=== PATIENT | male | born 1960 | race Two or more races ===

== ENCOUNTER 2022-07-30 23:51 | Inpatient (IN) | payer OTHER ==
[~2022-07-30] VITALS: Ht 172.7 cm; Wt 127.0 kg
--- NOTE | 2022-07-31 00:01 | NUR ---
TO ER BED 11. RADHA FROM [facility] B& FOR AMS. PT IS AAOX0, RR EVEN AND NON LABORED. CONNECTED TO POX AND HEART MONITOR. AWAITING MD COLINDRES
--- NOTE | 2022-07-31 00:13 | NUR ---
IV LINE ESTABLISHED, LAC20G
--- NOTE | 2022-07-31 00:16 | NUR ---
BLOOD AND CULTURES COLLECTED AND SENT TO LAB
--- NOTE | 2022-07-31 00:23 | NUR ---
COVID SWAB COLLECTED
[2022-07-31] MEDS ORDERED: IV NS 0.9% 1,000 ML BAG IV ONE ×2 (00:30→03:00)
--- NOTE | 2022-07-31 00:34 | NUR ---
SISTER, YUNG: [phone]
[2022-07-31 01:01] LABS: BASOPHILS % (AUTO) 0.5 % (0.0-2.0); EOSINOPHILS % (AUTO) 0.1 % (0.0-6.0); HEMATOCRIT 23 % (39-51); HEMOGLOBIN 7.7 g/dL (13.5-17.5); LYMPHOCYTES # (AUTO) 0.6 K/uL (0.8-4.8); LYMPHOCYTES % (AUTO) 6.6 % (20.0-44.0); MEAN CORPUSCULAR HGB CONC 34 g/dl (31.0-36.0); MEAN CORPUSCULAR VOLUME 82 fL (80-96); MONOCYTES # (AUTO) 0.6 K/uL (0.1-1.30); MONOCYTES % (AUTO) 6.3 % (2.0-12.0); NEUTROPHILS # (AUTO) 7.9 K/uL (1.8-8.9); NEUTROPHILS % (AUTO) 86.5 % (43.0-81.0); PLATELET COUNT (AUTO) 216 K/uL (150-450); RED BLOOD CELL COUNT(AUTO) 2.78 MIL/uL (4.5-6.0); WHITE BLOOD COUNT (AUTO) 9.1 K/uL (4.3-11.0)
[2022-07-31 01:18] LABS: BILIRUBIN,URINE NEGATIVE (NEGATIVE); COLOR,URINE YELLOW (YELLOW); LEUKOCYTE ESTERASE ,URINE NEGATIVE (NEGATIVE); NITRITE, URINE NEGATIVE (NEGATIVE); PH,URINE 5.5 (5.0-8.0); PROTEIN,URINE NEGATIVE (NEGATIVE); UGLUCOSE NEGATIVE (NEGATIVE); UROBILINOGEN,URINE 0.2 EU/dL (0.2)
[2022-07-31 01:27] LABS: SERUM AMMONIA 78 umol/L (11-32)
[2022-07-31 01:42] LABS: BACTERIA,URINE Few /HPF (None Seen); SQUAMOUS EPITHELIAL CELL,UR Moderate /HPF (None Seen)
[2022-07-31] MEDS ORDERED: LACTULOSE 10 G/15 ML UDC (PYXIS) ONE (01:42)
[2022-07-31 01:55] LABS: CALCIUM, SERUM 9.4 mg/dL (8.5-10.1); CARBON DIOXIDE 23 mmol/L (21-32); CHLORIDE 112 mmol/L (98-107); CREATININE 1.6 mg/dL (0.6-1.3); GLUCOSE 155 mg/dL (74-106); POTASSIUM 3.2 mmol/L (3.5-5.1); SODIUM SERUM 150 mmol/L (136-145)
[2022-07-31] MEDS ORDERED: LACTULOSE 10 G/15 ML UDC (PYXIS) PR ONE (02:00)
[2022-07-31 02:01] LABS: ACETAMINOPHEN 0 ug/ml (10-30); ALANINE AMINOTRANSFERASE 26 U/L (12-78); ALBUMIN 2.6 g/dL (3.4-5.0); ALCOHOL, BLOOD < 3 mg/dL (0-0); ALKALINE PHOSPHATASE 80 U/L (46-116); ASPARTATE AMINOTRANSFERASE 17 U/L (15-37); BILIRUBIN,DIRECT 0.1 mg/dL (0.0-0.2); BILIRUBIN,TOTAL 0.4 mg/dL (0.2-1.0); TOTAL PROTEIN, SERUM 6.2 g/dL (6.4-8.2); UREA NITROGEN, BLOOD 105 mg/dL (7-18)
[2022-07-31] MEDS ORDERED: IV 1/2NS 1000 ML 1,000 ML IV PRN (03:30)
[2022-07-31] MEDS ORDERED: ONDANSETRON HCL/PF 4 MG/2 ML VIAL IVP PRN (03:30)
[2022-07-31] MEDS ORDERED: MORPHINE SULFATE INJ 2 MG/ML DISP.SYRIN IV PRN (03:30)
[2022-07-31] MEDS ORDERED: Z GUARD REMEDY 4 OZ OINT TP PRN (03:30)
[2022-07-31] MEDS ORDERED: DEXTROSE 50%-WATER 50 ML DISP.SYRIN IV PRN (04:00)
--- NOTE | 2022-07-31 04:41 | NUR ---
REPORT GIVEN TO RR EN FOR DASIA
[2022-07-31 05:00] VITALS: BP 92/52
[2022-07-31] MEDS: BLOOD SUGAR DIAGNOSTIC 1 EACH STRIP IN SCH ×4 (06:14→22:07)
--- NOTE | 2022-07-31 06:36 | NUR ---
ADMISSION RN NOTES PATIENT BROUGHT UP IN UNIT AT AROUND 0500. ALERT AND ORIENTED TO NAME AND ONLY. NO S/S OF APPARENT DISTRESS ON ROOM AIR SATURATING 99%. DENIES ANY PAIN. NEW ID BAND ON PATIENT. L. AC #20G NOTED TO BE INTACT AND PATENT. PICTURES TAKEN. TELE MONITOR READING A-FIB WITH INVERTED T WAVE. PATIENT DENIES SMOKING AND DRINKING ALCOHOL, THOUGH NOT A GOOD HISTORIAN BECAUSE OF MENTATION. WILL CALL FAMILY MEMBERS FOR FURTHER ADMITTING QUESTIONS. SAFETY IN PLACE. ADMISSION V/S FOLLOWS: 92/52, HR-124, RR-18, T-97.7, SATURATION 99%
--- NOTE | 2022-07-31 07:03 | NUR ---
noc rn note got off the phone with patient's sister Yoly Escudero. Per sister patient has been hospitalized in [place] this past May and June and [facility] should have patient's documentations. Made sister aware that she might have to sign consent for authorization to release patient information to us. Sister agreeable to plan and states that she will come in @1000 am. made aware of floor and room number. will endorse to morning shift rn.
--- NOTE | 2022-07-31 07:18 | NUR ---
noc rn note patient put as full code for now. sister aware till we get documents from raquel aj.
--- NOTE | 2022-07-31 07:19 | NUR ---
Report given to angela Austin for continuity of care.
[2022-07-31 08:00] VITALS: BP 108/55
[2022-07-31] MEDS ORDERED: IV NS 0.9% 1,000 ML IV PRN (09:00)
[2022-07-31] MEDS ORDERED: LACTULOSE 10 G/15 ML UDC (PYXIS) PO PRN (09:00)
[2022-07-31 09:16] LABS: THYROID STIMULATING HORMONE 0.249 uIU/mL (0.358-3.74)
[2022-07-31] MEDS: PANTOPRAZOLE 40 MG VIAL IV SCH (09:17)
[2022-07-31] MEDS: POTASSIUM CL. PREMIX PERIPHER. 50 ML IV SCH ×4 (09:17→12:23)
[2022-07-31] MEDS: LACTULOSE 10 G/15 ML UDC (PYXIS) PO SCH ×2 (09:17→17:00)
[2022-07-31] MEDS ORDERED: DULA1.5P SQ (09:48)
[2022-07-31] MEDS ORDERED: NA P133E RC (09:48)
[2022-07-31] MEDS ORDERED: FERR325T23 PO (09:48)
[2022-07-31] MEDS ORDERED: MULT-447 PO (09:48)
[2022-07-31] MEDS ORDERED: BECL10.62 IH (09:48)
[2022-07-31] MEDS ORDERED: RIVA15TA PO (09:48)
[2022-07-31] MEDS ORDERED: CYAN-51 PO (09:48)
[2022-07-31] MEDS ORDERED: ACET-868 PO ×2 (09:48)
[2022-07-31] MEDS ORDERED: MAGN400O6 PO (09:48)
[2022-07-31] MEDS ORDERED: METF-440 PO (09:48)
[2022-07-31] MEDS ORDERED: AMLO10TA4 PO (09:48)
[2022-07-31] MEDS ORDERED: INSU100V27 SQ (09:48)
[2022-07-31] MEDS ORDERED: OMEP20CA15 PO (09:48)
[2022-07-31] MEDS ORDERED: METO25TA20 PO (09:48)
[2022-07-31] MEDS ORDERED: ASCO-352 PO (09:48)
[2022-07-31] MEDS ORDERED: ATOR40TA PO (09:48)
[2022-07-31] MEDS ORDERED: ALBU8.5H8 IH (09:48)
[2022-07-31] MEDS ORDERED: BISA10SU11 RC (09:48)
[2022-07-31] MEDS ORDERED: MAGNESIUM HYDROXIDE 30 ML UDC PO PRN (10:30)
[2022-07-31] MEDS ORDERED: BISACODYL SUPP (10 MG) 10 MG/SUPP.RECT SUPP.RECT RC PRN (10:30)
[2022-07-31] MEDS ORDERED: ALBUTEROL FS 2.5 MG/3 ML VIAL.NEB NEB PRN (10:30)
[2022-07-31] MEDS ORDERED: NA PHOS,M-B/NA PHOS,DI-BA 1 EA ENEMA RC PRN (10:30)
[2022-07-31] MEDS: IV 1/2NS 1000 ML 1,000 ML IV SCH ×2 (10:32→21:02)
[2022-07-31 12:00] VITALS: BP 108/55
[2022-07-31 16:00] VITALS: BP 115/69
[2022-07-31] MEDS ORDERED: RIVAROXABAN 10 MG TABLET PO SCH (17:00)
[2022-07-31] MEDS: METOPROLOL TARTRATE 25 MG TABLET PO SCH (17:00)
--- NOTE | 2022-07-31 19:49 | NUR ---
PRODUCTION MATERIAL HANDLER CLOSING NOTE PATIENT RECIEVED IN BED AN INTERMITTENTLY SLEEPING. A/OX0-1 AND UNABLE TO VERBALIZE NEEDS. IV ACCESS REMAINS INTACT AND PATENT WITH 1/2 NS RUNNING CONTINUOUSLY @ 100ML/HR. PATIENT BREATHING LABORED, HOWEVER VITALS STABLE. OXYGEN SATURATION 96-98% ON RA. VS WNL ON SHIFT. PATIENT CURRENTLY NPO STATUS HE IS UNABLE TO PROPERLY SWALLOW INTAKE. SWALLOW EVAL SCHEDULED FOR 08/01. MD MADE AWARE OF PATIENT CURRENT STATUS. BS CHECKS STABLE SHIFT ON SHIFT @ 135 & 124 SAFETY MEASURES INTACT WITH BED LOW AND LOCKED. CALL LIGHT WITHIN REACH. WILL CONT TO MONITOR
[2022-07-31 20:00] VITALS: BP 128/63
--- NOTE | 2022-07-31 20:08 | NUR ---
CANE WEIGHER HELPER OPENING NOTE PATIENT AWAKE IN BED, ALERT/ORIENTED X 0-1, UNABLE TO VERBALIZED NEEDS. PT CONTINUES TO HAVE LABORED BREATHING BUT 02 SATURATION WNL. PATIENT ON EXTERNAL REGIONAL EXTENSION SERVICE SPECIALIST READING A. FIB, HR: 125. PATIENT NPO AT THIS TIME, PER DAYSHIFT RN PATIENT UNABLE TO SWALLOW, SWALLOW EVAL ORDER IN PLACE. IV ACCESS ON LAC #20G INTACT AND INFUSING 1/2 NS @ 100 ML/HR. SAFETY MEASURES IN PLACE: CALL LIGHT WITHIN REACH, SIDE RAILS UP X 3, BED LOCKED IN LOWEST POSITION, HOB ELEVATED, BED ALARM ON. WILL CONTINUE TO MONITOR PATIENT
[2022-07-31] MEDS: INSULIN REGULAR, HUMAN 100 UNIT/ML 3 ML VIAL SQ PRN (22:08)
--- NOTE | 2022-07-31 22:31 | NUR ---
TANNER ROTARY DRUM CONTINUOUS PROCESS NOTE PATIENT'S BS 135, DID NOT GIVE INSULIN PER SLIDING SCALE BECAUSE PATIENT IS NPO
[2022-08-01] VITALS (9 sets, daily range): BP systolic 99–128; BP diastolic 49–74
[2022-08-01 06:41] LABS: EOSINOPHILS % (AUTO) 0.2 % (0.0-6.0); LYMPHOCYTES # (AUTO) 0.4 K/uL (0.8-4.8); NEUTROPHILS # (AUTO) 4.8 K/uL (1.8-8.9)
[2022-08-01 06:50] LABS: BASOPHILS % (AUTO) 0.6 % (0.0-2.0); LYMPHOCYTES % (AUTO) 7.8 % (20.0-44.0); MEAN CORPUSCULAR HGB CONC 33 g/dl (31.0-36.0); MEAN CORPUSCULAR VOLUME 85 fL (80-96); MONOCYTES # (AUTO) 0.4 K/uL (0.1-1.30); MONOCYTES % (AUTO) 7.8 % (2.0-12.0); NEUTROPHILS % (AUTO) 83.6 % (43.0-81.0); PLATELET COUNT (AUTO) 173 K/uL (150-450); RED BLOOD CELL COUNT(AUTO) 2.16 MIL/uL (4.5-6.0); WHITE BLOOD COUNT (AUTO) 5.8 K/uL (4.3-11.0)
[2022-08-01] MEDS: INSULIN REGULAR, HUMAN 100 UNIT/ML 3 ML VIAL SQ PRN ×2 (06:54→22:20)
[2022-08-01] MEDS: BLOOD SUGAR DIAGNOSTIC 1 EACH STRIP IN SCH ×4 (06:54→22:19)
[2022-08-01] MEDS: IV 1/2NS 1000 ML 1,000 ML IV SCH ×2 (06:54→18:02)
[2022-08-01 06:56] LABS: HEMATOCRIT 18 % (39-51); HEMOGLOBIN 6.2 g/dL (13.5-17.5)
--- NOTE | 2022-08-01 07:03 | NUR ---
SENIOR MAINTENANCE TECHNICIAN CLOSING NOTE PATIENT AWAKE IN BED, ALERT/ORIENTED X 0-1, UNABLE TO VERBALIZED NEEDS, PT NODS HEAD YES/NO TO SOME QUESTIONS. PT STABLE ON RA, NO S/S OF DISTRESS OR SOB NOTED, BREATHING EVEN AND UNLABORED. PATIENT ON EXTERNAL STATOR PLATE WASHER READING A. FIB, UNCONTROLLED, HR: 111. PATIENT KEPT NPO, AWAITING SWALLOW EVAL. IV ACCESS ON LAC #20G INTACT AND INFUSING 1/2 NS @ 100 ML/HR. MEDICATIONS GIVEN ORDERED, PT NEEDS MET THROUGHOUT SHIFT. SAFETY MEASURES IN PLACE: CALL LIGHT WITHIN REACH, SIDE RAILS UP X 3, BED LOCKED IN LOWEST POSITION, HOB ELEVATED, BED ALARM ON. WILL ENDORSE TO DAYSHIFT NURSE FOR CONTINUITY OF CARE
[2022-08-01 07:06] LABS: ALBUMIN 2.5 g/dL (3.4-5.0); BILIRUBIN,TOTAL 0.4 mg/dL (0.2-1.0); CALCIUM, SERUM 8.2 mg/dL (8.5-10.1); CREATININE 1.3 mg/dL (0.6-1.3); MAGNESIUM 1.8 mg/dL (1.8-2.4); PHOSPHORUS 2.7 mg/dL (2.5-4.9); TOTAL PROTEIN, SERUM 5.8 g/dL (6.4-8.2)
[2022-08-01 07:07] LABS: THYROID STIMULATING HORMONE 0.411 uIU/mL (0.358-3.74)
[2022-08-01] MEDS ORDERED: OMEPRAZOLE 20 MG CAPSULE.DR PO SCH (07:30)
[2022-08-01] MEDS: LACTULOSE 10 G/15 ML UDC (PYXIS) PO SCH ×2 (10:50→17:57)
[2022-08-01] MEDS: PANTOPRAZOLE 40 MG VIAL IV SCH (10:50)
[2022-08-01] MEDS: METOPROLOL TARTRATE 25 MG TABLET PO SCH ×2 (10:51→17:00)
[2022-08-01] MEDS: FERROUS SULFATE (325 MG) 325 MG/TAB TABLET PO SCH (10:51)
[2022-08-01] MEDS: AMLODIPINE BESYLATE 10 MG TABLET PO SCH (10:51)
[2022-08-01] MEDS ORDERED: POTASSIUM CHLORIDE 20 MEQ POWDER PACKET PO ONE (11:00)
[2022-08-01] MEDS: DIGOXIN INJ 0.5 MG/2 ML AMPUL IV SCH ×2 (13:50→17:55)
[2022-08-01 15:50] LABS: LYMPHOCYTES % (MANUAL) 10 % (16-48); MONOCYTES % (MANUAL) 10 % (0-11.0); NEUTROPHILS % (MANUAL) 80 (42-76)
--- NOTE | 2022-08-01 19:28 | NUR ---
RN CLOSING NOTE PATIENT RECEIVED IN BED AN INTERMITTENTLY SLEEPING. REMAINS A/OX0-1 AND UNABLE TO VERBALIZE NEEDS. IV ACCESS TO LAC REMAINS INTACT AND PATENT WITH 1/2 NS RUNNING CONTINUOUSLY @ 75ML/HR. PATIENT BREATHING CONTINUES TO BE LABORED, HOWEVER VITALS STABLE. OXYGEN SATURATION 96-98% ON RA. VS STABLE ON SHIFT. PATIENT NPO STATUS ADVANCED TO PUREED DIET HE IS ABLE TO TOLERATE ORAL INTAKE PER SPEECH THERAPY. BS CHECKS STABLE ON SHIFT @ 130 & 132. SAFETY MEASURES INTACT WITH BED LOW AND LOCKED. CALL LIGHT WITHIN REACH. WILL CONT TO MONITOR
--- NOTE | 2022-08-01 20:16 | NUR ---
SLEEVE PRESSER OPERATOR OPENING NOTE PATIENT SLEEPING IN BED, AWAKENED BY TOUCH, ALERT/ORIENTED X 0-1, UNABLE TO VERBALIZED NEEDS, ABLE TO NOD HEAD YES/NO TO SOME QUESTIONS. PT STABLE ON RA, NO S/S OF DISTRESS OR SOB NOTED, BREATHING EVEN AND UNLABORED. IV ACCESS ON LAC #20G INTACT AND INFUSING 1/2 NS @ 100 ML/HR. AWAITING BLOOD FOR BLOOD TRANSFUSION. SAFETY MEASURES IN PLACE: CALL LIGHT WITHIN REACH, SIDE RAILS UP X 3, BED LOCKED IN LOWEST POSITION, HOB ELEVATED, BED ALARM ON. WILL CONTINUE TO MONITOR PATIENT
[2022-08-01] MEDS: MUPIROCIN OINT 2% 22 GM TUBE NS SCH (21:47)
[2022-08-02] VITALS (10 sets, daily range): BP systolic 90–138; BP diastolic 48–79
[2022-08-02] MEDS ORDERED: DIGOXIN INJ 0.5 MG/2 ML AMPUL ONE (01:39)
[2022-08-02] MEDS: DIGOXIN INJ 0.5 MG/2 ML AMPUL IV SCH (01:40)
[2022-08-02] MEDS: IV 1/2NS 1000 ML 1,000 ML IV SCH (03:17)
[2022-08-02 06:15] LABS: CALCIUM, SERUM 7.7 mg/dL (8.5-10.1); CREATININE 1.4 mg/dL (0.6-1.3)
[2022-08-02 06:24] LABS: POTASSIUM 2.9 mmol/L (3.5-5.1)
[2022-08-02] MEDS: BLOOD SUGAR DIAGNOSTIC 1 EACH STRIP IN SCH ×4 (06:31→22:09)
[2022-08-02] MEDS: INSULIN REGULAR, HUMAN 100 UNIT/ML 3 ML VIAL SQ PRN ×3 (06:32→17:28)
[2022-08-02 06:43] LABS: BASOPHILS % (AUTO) 0.4 % (0.0-2.0); EOSINOPHILS % (AUTO) 0.1 % (0.0-6.0); LYMPHOCYTES # (AUTO) 0.3 K/uL (0.8-4.8); LYMPHOCYTES % (AUTO) 4.3 % (20.0-44.0); MEAN CORPUSCULAR HGB CONC 33 g/dl (31.0-36.0); MEAN CORPUSCULAR VOLUME 86 fL (80-96); MONOCYTES # (AUTO) 0.5 K/uL (0.1-1.30); MONOCYTES % (AUTO) 8.3 % (2.0-12.0); NEUTROPHILS # (AUTO) 5.6 K/uL (1.8-8.9); NEUTROPHILS % (AUTO) 86.9 % (43.0-81.0); PLATELET COUNT (AUTO) 142 K/uL (150-450); RED BLOOD CELL COUNT(AUTO) 2.37 MIL/uL (4.5-6.0); WHITE BLOOD COUNT (AUTO) 6.5 K/uL (4.3-11.0)
[2022-08-02 06:51] LABS: HEMATOCRIT 20 % (39-51); HEMOGLOBIN 6.7 g/dL (13.5-17.5)
--- NOTE | 2022-08-02 07:00 | NUR ---
MS RN CLOSING NOTE PATIENT SLEEPING IN BED, AWAKENED BY TOUCH, ALERT/ORIENTED X 0-1, UNABLE TO VERBALIZED NEEDS, ABLE TO NOD HEAD YES/NO TO SOME QUESTIONS. PT STABLE ON RA, NO S/S OF DISTRESS OR SOB NOTED, BREATHING EVEN AND UNLABORED. IV ACCESS ON LAC #20G INTACT AND INFUSING 1/2 NS @ 100 ML/HR, RIGHT HAND #20G INTACT AND SALINE LOCKED. 1 UNIT PRBC INFUSED THIS SHIFT, PATIENT TOLERATED WELL. PATIENT'S BLOOD SUGAR 145 THIS AM, DID NOT GIVE INSULIN PER SLIDING SCALE BECAUSE PATIENT TOO LETHARGIC TO EAT OR DRINK. SAFETY MEASURES IN PLACE: CALL LIGHT WITHIN REACH, SIDE RAILS UP X 3, BED LOCKED IN LOWEST POSITION, HOB ELEVATED, BED ALARM ON. WILL ENDORSE TO DAYSHIFT RN FOR CONTINUITY OF CARE
--- NOTE | 2022-08-02 07:30 | NUR ---
RN OPENING NOTE RECEIVED PATIENT IN BED ASLEEP, EASILY AROUSED. RESPONSIVE TO VERBAL STIMULI. A/O X1. NO SIGNS OF ACUTE DISTRESS NOTED. ON ROOM AIR, NO SOB NOTED, BREATHING EVEN AND UNLABORED. NO S/SX OF PAIN AT THIS TIME. NOTED WITH IV ACCESS ON RIGHT HAND #20G, SALINE LOCKED AND LEFT AC #20G WITH 1/2 NS @100 ML/HR RUNNING. SAFETY MEASURE IN PLACE. BED IN LOWEST AND LOCKED POSITION, SIDE RAILS UP X2, CALL LIGHT PLACED WITHIN EASY REACH. WILL CONTINUE TO MONITOR PATIENT.
[2022-08-02] MEDS: FERROUS SULFATE (325 MG) 325 MG/TAB TABLET PO SCH (09:16)
[2022-08-02] MEDS: MUPIROCIN OINT 2% 22 GM TUBE NS SCH ×2 (09:16→22:15)
[2022-08-02] MEDS: LACTULOSE 10 G/15 ML UDC (PYXIS) PO SCH ×2 (09:16→17:26)
[2022-08-02] MEDS: METOPROLOL TARTRATE 25 MG TABLET PO SCH ×2 (09:16→17:26)
[2022-08-02] MEDS: PANTOPRAZOLE 40 MG VIAL IV SCH (09:16)
--- NOTE | 2022-08-02 09:16 | NUR ---
WOUND CARE CONSULT: PT PRESENTS WITH INTACT SACRAL DEEP TISSUE INJURY WHICH EXTENDS TO BUTTOCKS WITH SACRAL SCARRING NOTED, ABDOMINAL/GROINFOLDS RASH/DISCOLORATION AND DISCOLORATION TO LOWER LEGS AND LEFT HEEL WITH SCARRING, ALL PRESENT ON ADMISSION. PT IS INCONTINENT OF LARGE AMOUNT OF URINE. RECOMMENDATIONS MADE FOR SKIN PROTECTION. DISCUSSED WITH NURSING STAFF. IN AGREEMENT WITH PLAN OF CARE. Addendum: 08/02/22 at 0917 by AUTUMN OG WNDNU Amended: Links added.
[2022-08-02] MEDS: AMLODIPINE BESYLATE 10 MG TABLET PO SCH (09:17)
[2022-08-02] MEDS: IV D5W 1,000 ML IV SCH ×2 (09:46→19:44)
--- NOTE | 2022-08-02 10:30 | NUR ---
RN NOTE BLOOD TRANSFUSION OF 1 UNIT PRBC STARTED. WILL MONITOR FOR ADVERSE EFFECTS.
--- NOTE | 2022-08-02 10:45 | NUR ---
RN NOTE 15 MINUTES INTO TRANSFUSION.O A/R NOTED, TOLERATING PROCEDURE WELL. VITAL SIGNS: T 98.5, P 97, R 18, BP 98/54, SPO2 95% IN ROOM AIR. ADVANCED TRANSFUSION TO 120 ML/HR.
[2022-08-02] MEDS ORDERED: POTASSIUM CHLORIDE 20 MEQ POWDER PACKET PO ONE (11:00)
--- NOTE | 2022-08-02 12:40 | NUR ---
RN NOTE BLOOD TRANSFUSION FINISHED, NO A/R NOTED. VITAL SIGNS FOLLOWS: T 98.6, P 97, R 19, BP 98/62, SPO2 96% ON ROOM AIR. NO ADVERSE REACTION NOTED.
[2022-08-02 13:25] LABS: BAND % (MANUAL) 10 % (0.0-5.0); LYMPHOCYTES % (MANUAL) 10 % (16-48); MONOCYTES % (MANUAL) 4 % (0-11.0); MYELOCYTES % 2 % (0-0); NEUTROPHILS % (MANUAL) 74 (42-76)
[2022-08-02] MEDS: CLOTRIMAZOLE 1% 15 GM TUBE TP SCH (17:26)
--- NOTE | 2022-08-02 18:56 | NUR ---
RN CLOSING NOTES PATIENT IN BED ASLEEP, EASILY AROUSED. RESPONSIVE TO VERBAL STIMULI. ABLE TO ANSWER SIMPLE YES AND NO QUESTIONS. NO SIGNS OF ACUTE DISTRESS NOTED. REMAINS STABLE ON ROOM AIR, NO SOB NOTED, BREATHING EVEN AND UNLABORED. NO S/SX OF PAIN. IV ACCESS ON RIGHT HAND #20G, SALINE LOCKED AND LEFT AC #20G WITH [id number] @100 ML/HR RUNNING. SAFETY MEASURE IN PLACE. BED IN LOWEST AND LOCKED POSITION, SIDE RAILS UP X2, CALL LIGHT PLACED WITHIN EASY REACH. WILL CONTINUE TO MONITOR PATIENT.
--- NOTE | 2022-08-03 01:40 | NUR ---
RN OPENING NOTES PATIENT IN BED ASLEEP, EASILY AROUSED. RESPONSIVE TO VERBAL STIMULI. ABLE TO ANSWER SIMPLE YES AND NO QUESTIONS. NO SIGNS OF ACUTE DISTRESS NOTED. REMAINS STABLE ON ROOM AIR, NO SOB NOTED, BREATHING EVEN AND UNLABORED. NO S/SX OF PAIN. IV ACCESS ON RIGHT HAND #20G, SALINE LOCKED AND LEFT AC #20G WITH [id number] @100 ML/HR RUNNING. SAFETY MEASURE IN PLACE. BED IN LOWEST AND LOCKED POSITION, SIDE RAILS UP X2, CALL LIGHT PLACED WITHIN EASY REACH. WILL CONTINUE TO MONITOR PATIENT.
[2022-08-03] MEDS: IV D5W 1,000 ML IV SCH ×2 (05:36→17:54)
[2022-08-03] MEDS: BLOOD SUGAR DIAGNOSTIC 1 EACH STRIP IN SCH ×4 (06:07→22:24)
[2022-08-03 06:43] LABS: BASOPHILS % (AUTO) 0.5 % (0.0-2.0); EOSINOPHILS % (AUTO) 0.2 % (0.0-6.0); HEMATOCRIT 21 % (39-51); LYMPHOCYTES # (AUTO) 0.5 K/uL (0.8-4.8); LYMPHOCYTES % (AUTO) 5.8 % (20.0-44.0); MEAN CORPUSCULAR HGB CONC 33 g/dl (31.0-36.0); MEAN CORPUSCULAR VOLUME 87 fL (80-96); MONOCYTES # (AUTO) 0.8 K/uL (0.1-1.30); NEUTROPHILS # (AUTO) 7.1 K/uL (1.8-8.9); NEUTROPHILS % (AUTO) 84.5 % (43.0-81.0); PLATELET COUNT (AUTO) 137 K/uL (150-450); RED BLOOD CELL COUNT(AUTO) 2.39 MIL/uL (4.5-6.0); WHITE BLOOD COUNT (AUTO) 8.4 K/uL (4.3-11.0)
[2022-08-03 06:54] LABS: HEMOGLOBIN 6.8 g/dL (13.5-17.5)
--- NOTE | 2022-08-03 07:01 | NUR ---
RN CLOSING NOTES PATIENT IN BED ASLEEP, EASILY AROUSED. RESPONSIVE TO VERBAL STIMULI. ABLE TO ANSWER SIMPLE YES AND NO QUESTIONS. NO SIGNS OF ACUTE DISTRESS NOTED. REMAINS STABLE ON ROOM AIR, NO SOB NOTED, BREATHING EVEN AND UNLABORED. NO S/SX OF PAIN. IV ACCESS ON RIGHT HAND #20G, SALINE LOCKED AND LEFT AC #20G WITH [id number] @100 ML/HR RUNNING. SAFETY MEASURE IN PLACE. BED IN LOWEST AND LOCKED POSITION, SIDE RAILS UP X2, CALL LIGHT PLACED WITHIN EASY REACH. TURNED AND REPOSITIONED EVERY 2 HOURS. OFFLOADING DONE. WILL CONTINUE TO MONITOR PATIENT.
[2022-08-03 07:17] LABS: ALBUMIN 2.1 g/dL (3.4-5.0); BILIRUBIN,TOTAL 0.9 mg/dL (0.2-1.0); CALCIUM, SERUM 7.8 mg/dL (8.5-10.1); CREATININE 1.4 mg/dL (0.6-1.3); MAGNESIUM 1.9 mg/dL (1.8-2.4); PHOSPHORUS 2.1 mg/dL (2.5-4.9); TOTAL PROTEIN, SERUM 5.8 g/dL (6.4-8.2)
[2022-08-03 08:00] VITALS: BP 116/79
[2022-08-03 08:29] LABS: POTASSIUM 2.8 mmol/L (3.5-5.1)
--- NOTE | 2022-08-03 08:50 | NUR ---
MS/TN DR GALINDO NOTIFIED OF CRITICAL VALUES
[2022-08-03] MEDS ORDERED: POTASSIUM CHLORIDE 20 MEQ TAB.PRT.SR PO ONE (09:30)
[2022-08-03] MEDS: CLOTRIMAZOLE 1% 15 GM TUBE TP SCH ×2 (09:41→17:24)
[2022-08-03] MEDS: MUPIROCIN OINT 2% 22 GM TUBE NS SCH ×2 (09:43→21:12)
[2022-08-03] MEDS: LACTULOSE 10 G/15 ML UDC (PYXIS) PO SCH ×2 (09:48→17:58)
[2022-08-03] MEDS: FERROUS SULFATE (325 MG) 325 MG/TAB TABLET PO SCH (09:48)
[2022-08-03] MEDS: PANTOPRAZOLE 40 MG VIAL IV SCH (09:48)
[2022-08-03] MEDS: METOPROLOL TARTRATE 25 MG TABLET PO SCH ×2 (09:49→17:59)
[2022-08-03] MEDS: AMLODIPINE BESYLATE 10 MG TABLET PO SCH (09:49)
[2022-08-03] MEDS ORDERED: POTASSIUM PHOSPHATE MM 7.5 MMOL in IV NS 0.9% 100 ML IV SCH (10:00)
--- NOTE | 2022-08-03 12:02 | NUR ---
GPS/RN ACCUCHECK =124 NO INSULIN COVERAGE NEEDED
[2022-08-03] MEDS: POTASSIUM PHOSPHATE MM 7.5 MMOL in IV NS 0.9% 100 ML IV SCH ×2 (12:15→15:31)
[2022-08-03 16:00] VITALS: BP 111/67
[2022-08-03] MEDS ORDERED: Potassium Chloride 10 MEQ in IV D5W 50 ML IV SCH (18:00)
[2022-08-03] MEDS: INSULIN REGULAR, HUMAN 100 UNIT/ML 3 ML VIAL SQ PRN (18:11)
[2022-08-03] MEDS: POTASSIUM CL. PREMIX PERIPHER. 50 ML IV SCH ×4 (18:48→22:17)
[2022-08-03 19:34] VITALS: BP 126/67
[2022-08-03 20:00] VITALS: BP 126/67
[2022-08-04] VITALS (8 sets, daily range): BP systolic 104–134; BP diastolic 54–81
[2022-08-04] MEDS: IV D5W 1,000 ML IV SCH ×2 (01:22→17:56)
[2022-08-04 05:50] LABS: BASOPHILS % (AUTO) 0.2 % (0.0-2.0); EOSINOPHILS % (AUTO) 1.1 % (0.0-6.0); LYMPHOCYTES # (AUTO) 0.5 K/uL (0.8-4.8); LYMPHOCYTES % (AUTO) 5.3 % (20.0-44.0); MEAN CORPUSCULAR HGB CONC 33 g/dl (31.0-36.0); MEAN CORPUSCULAR VOLUME 86 fL (80-96); MONOCYTES # (AUTO) 0.6 K/uL (0.1-1.30); MONOCYTES % (AUTO) 6.5 % (2.0-12.0); NEUTROPHILS # (AUTO) 7.8 K/uL (1.8-8.9); NEUTROPHILS % (AUTO) 86.9 % (43.0-81.0); PLATELET COUNT (AUTO) 144 K/uL (150-450); RED BLOOD CELL COUNT(AUTO) 2.34 MIL/uL (4.5-6.0)
--- NOTE | 2022-08-04 05:58 | NUR ---
closing notes: alert to nurse at the bedside will follow her with his eyes nonverbal flat affect on a special BIG BOY BED d/t to his weight. repositioned and kept clean and dry thickened liquids aspiration precautions
[2022-08-04 06:20] LABS: HEMATOCRIT 20 % (39-51)
[2022-08-04 06:21] LABS: HEMOGLOBIN 6.6 g/dL (13.5-17.5)
[2022-08-04] MEDS: BLOOD SUGAR DIAGNOSTIC 1 EACH STRIP IN SCH ×4 (06:36→21:46)
--- NOTE | 2022-08-04 07:40 | NUR ---
RN OPENING NOTE PATIENT RECEIVED IN BED AND AWAKE. A/O X1 UNABLE TO COMPLETELY VERBALIZE NEEDS. IV ACCES TO LAC & R-HAND INTACT AND PATENT. NO S/SX OF PAIN OR DISTRESS OBSERVED. BREATHING STABLE AND WNL. SAFETY MEASURES IN TACT WITH BED LOW AND LOCKED AND SIDERAIL UP. CALL LIGHT WITHIN REACH. WILL CONT TO MONITOR.
[2022-08-04 08:09] LABS: CALCIUM, SERUM 7.4 mg/dL (8.5-10.1); CARBON DIOXIDE 26 mmol/L (21-32); CREATININE 1.3 mg/dL (0.6-1.3); GLUCOSE 127 mg/dL (74-106); PHOSPHORUS 2.1 mg/dL (2.5-4.9); POTASSIUM 3.3 mmol/L (3.5-5.1); UREA NITROGEN, BLOOD 19 mg/dL (7-18)
[2022-08-04 08:56] LABS: SODIUM SERUM 159 mmol/L (136-145)
[2022-08-04 09:00] LABS: EOSINOPHILS % (MANUAL) 2 % (0-4); LYMPHOCYTES % (MANUAL) 8 % (16-48); MONOCYTES % (MANUAL) 7 % (0-11.0); NEUTROPHILS % (MANUAL) 83 (42-76)
[2022-08-04] MEDS ORDERED: PANTOPRAZOLE 40 MG/PACK PACK PO SCH (09:00)
[2022-08-04] MEDS: CLOTRIMAZOLE 1% 15 GM TUBE TP SCH ×2 (09:00→17:00)
[2022-08-04] MEDS: FERROUS SULFATE (325 MG) 325 MG/TAB TABLET PO SCH (10:19)
[2022-08-04] MEDS: PANTOPRAZOLE 40 MG VIAL IV SCH (10:20)
[2022-08-04] MEDS: AMLODIPINE BESYLATE 10 MG TABLET PO SCH (10:20)
[2022-08-04] MEDS: LACTULOSE 10 G/15 ML UDC (PYXIS) PO SCH ×2 (10:20→17:57)
[2022-08-04] MEDS: METOPROLOL TARTRATE 25 MG TABLET PO SCH ×2 (10:20→17:57)
[2022-08-04] MEDS: MUPIROCIN OINT 2% 22 GM TUBE NS SCH ×2 (10:21→17:58)
[2022-08-04] MEDS ORDERED: POTASSIUM CHLORIDE 20 MEQ POWDER PACKET PO SCH (11:00)
[2022-08-04] MEDS ORDERED: NEUTRA PHOS 1 POWD.PACKET PO ONE (11:00)
--- NOTE | 2022-08-04 11:49 | NUR ---
RN NOTE PRBC TRANSFUSION STARTED @ 1145. FIRST SET OF VITALS TAKEN @ 1130
--- NOTE | 2022-08-04 18:54 | NUR ---
RN CLOSING NOTE PATIENT REMAINED A/OX1-2 AND ABLE TO SOMEWHAT VERBALIZED NEEDS; SPEECH PRESENTS DELAYED, HOWEVER CLEAR. IV ACCESS TO LAC DISLODGED WITH MINIMAL BLEEDING ON SHIFT; SITE CLEANED AND DRESSED APPROPRIATELY. RESUMED IV ACCESS TO R-HAND. NO S/SX OF TRAUMA TO EITHER SITE. PATIENT TOLERATED ALL ORAL MEDICATIONS AND MEALS WELL ON SHIFT. STOOL COLLECTED AND STORED IN SPECIMEN [place] FOR LAB ELECTRICAL ELECTRONICS ENGINEER. 1 UNIT OF PRBC TRANSFUSED OVER 4HOURS ON SHIFT. TOLERATED WELL WITH NO S/SX OF OF ADVERSE REACTIONS OBSERVED OR REPORTED. SAFETY PRECAUTIONS INTACT WITH BED LOW AND LOCKED. CALL LIGHT WITHIN REACH. WILL CONTINUE TO MONITOR.
--- NOTE | 2022-08-04 19:00 | NUR ---
received in bed eyes open good eye contact non verbal at this time appears more keenly alert and awake then 24 hours prior on a big boy bed
[2022-08-04] MEDS: INSULIN REGULAR, HUMAN 100 UNIT/ML 3 ML VIAL SQ PRN (21:50)
[2022-08-05] MEDS: IV D5W 1,000 ML IV SCH (03:50)
--- NOTE | 2022-08-05 04:21 | NUR ---
closing notes: Donis Hightower here explained to him that the pt is having liquid stool black in color agreed that a rectal tube would be appriopiate. placed a rectal tube and instantly liquid black stool. pt is alert and orientated x3 is cooperative and friendly. attemps to assist nurses in his turning and repositioning. Noted skin breakdown on the sacral area mepilex applied on a special bed for large people incontinent of urine
[2022-08-05 06:45] LABS: CREATININE 1.3 mg/dL (0.6-1.3)
[2022-08-05] MEDS: BLOOD SUGAR DIAGNOSTIC 1 EACH STRIP IN SCH ×4 (06:51→22:45)
[2022-08-05] MEDS: INSULIN REGULAR, HUMAN 100 UNIT/ML 3 ML VIAL SQ PRN ×2 (06:54→22:49)
[2022-08-05 08:00] VITALS: BP 114/62
[2022-08-05] MEDS ORDERED: PANTOPRAZOLE 40 MG/PACK PACK PO SCH (09:00)
[2022-08-05] MEDS: LACTULOSE 10 G/15 ML UDC (PYXIS) PO SCH ×2 (09:00→17:00)
[2022-08-05] MEDS: AMLODIPINE BESYLATE 10 MG TABLET PO SCH (09:00)
[2022-08-05] MEDS: METOPROLOL TARTRATE 25 MG TABLET PO SCH ×2 (09:00→17:00)
[2022-08-05] MEDS: FERROUS SULFATE (325 MG) 325 MG/TAB TABLET PO SCH (09:00)
[2022-08-05] MEDS: CLOTRIMAZOLE 1% 15 GM TUBE TP SCH ×2 (09:00→17:52)
[2022-08-05] MEDS ORDERED: POTASSIUM CHLORIDE 20 MEQ TAB.PRT.SR PO SCH (10:30)
[2022-08-05] MEDS: MUPIROCIN OINT 2% 22 GM TUBE NS SCH ×2 (11:46→22:03)
[2022-08-05] MEDS: PANTOPRAZOLE 40 MG VIAL IV SCH (11:46)
[2022-08-05] MEDS: POTASSIUM CL. PREMIX PERIPHER. 50 ML IV SCH ×6 (12:29→18:32)
[2022-08-05 14:26] LABS: BASOPHILS # (AUTO) 0.1 K/uL (0.0-0.2); BASOPHILS % (AUTO) 0.8 % (0.0-2.0); EOSINOPHILS % (AUTO) 1.2 % (0.0-6.0); HEMATOCRIT 23 % (39-51); LYMPHOCYTES # (AUTO) 0.5 K/uL (0.8-4.8); LYMPHOCYTES % (AUTO) 4.6 % (20.0-44.0); MEAN CORPUSCULAR HGB CONC 31 g/dl (31.0-36.0); MEAN CORPUSCULAR VOLUME 88 fL (80-96); MONOCYTES # (AUTO) 0.6 K/uL (0.1-1.30); NEUTROPHILS # (AUTO) 10.3 K/uL (1.8-8.9); NEUTROPHILS % (AUTO) 88.4 % (43.0-81.0); PLATELET COUNT (AUTO) 180 K/uL (150-450); RED BLOOD CELL COUNT(AUTO) 2.57 MIL/uL (4.5-6.0); WHITE BLOOD COUNT (AUTO) 11.7 K/uL (4.3-11.0)
[2022-08-05 16:00] VITALS: BP 115/75
[2022-08-05 17:35] LABS: NEUTROPHILS % (MANUAL) 76 (42-76)
[2022-08-05 17:36] LABS: BAND % (MANUAL) 11 % (0.0-5.0); BASOPHILS % (MANUAL) 0 % (0.0-2.0); EOSINOPHILS % (MANUAL) 0 % (0-4); LYMPHOCYTES % (MANUAL) 4 % (16-48); MONOCYTES % (MANUAL) 9 % (0-11.0)
--- NOTE | 2022-08-05 18:53 | NUR ---
RN CLOSING NOTE PATIENT RECEIVED AWAKE & A/OX3. MORE ALERT AND VERBAL THAN PREVIOUS DAY AND ABLE TO VERBALIZE NEEDS; SPEECH CONTINUES TO PRESENT DELAYED, HOWEVER CLEAR. IV ACCESS R-HAND INTACT AND PATENT WITH NO S/SX OF TRAUMA OR BLEEDING. PATIENT NPO PER DR. GALINDO FOR POSSIBLE SCOPE PROCEDURE DUE TO BLACKENED STOOL. BS LEVELS REMAINED STABLE THROUGHOUT SHIFT @ 120 AND 114. RECTAL TUBE INTACT AND DRAINING DARK, RUNNY STOOL. POTASSIUM REPLACED ON SHIFT VIA IV. TOLERATED WELL. SAFETY PRECAUTIONS INTACT WITH BED LOW AND LOCKED. CALL LIGHT WITHIN REACH. WILL CONTINUE TO MONITOR.
[2022-08-05 20:00] VITALS: BP 104/71
--- NOTE | 2022-08-05 20:23 | NUR ---
MS RN OPENING NOTE PATIENT CURRENTLY IN SURGERY FOR EGD. PATIENT ALERT/ORIENTED X 3-4, PT ABLE TO MAKE NEEDS KNOWN. PATIENT STABLE ON RA, NO S/S OF DISTRESS OR SOB NOTED, BREATHING EVEN AND UNLABORED. IV ACCESS ON RIGHT HAND #20G INTACT AND SALINE LOCKED. RECTAL TUBE IN PLACE. SAFETY MEASURES IN PLACE: CALL LIGHT WITHIN REACH, SIDE RAILS UP X 3, BED LOCKED IN LOWEST POSITION, BED ALARM ON. WILL CONTINUE TO MONITOR PATIENT
--- NOTE | 2022-08-05 21:15 | NUR ---
RN NOTE PATIENT BACK FROM EGD IN STABLE CONDITION. PT ALERT/ORIENTED X 3, PT ABLE TO MAKE NEEDS KNOWN. PT STABLE ON RA, NO S/S OF DISTRESS OR SOB NOTED, BREATHING EVEN AND UNLABORED. PER DR. LOYD ORDER FOR SOFT DIET
--- NOTE | 2022-08-06 06:56 | NUR ---
MS RN CLOSING NOTE PATIENT AWAKE IN BED, ALERT/ORIENTED X 3, NOTED WITH DELAYED SPEECH, PT ABLE TO MAKE NEEDS KNOWN. PT STABLE ON RA, NO S/S OF DISTRESS OR SOB NOTED, BREATHING EVEN AND UNLABORED. IV ACCESS ON RIGHT HAND #24G INTACT AND SALINE LOCKED. MEDICATIONS GIVEN ORDERED, PT NEEDS MET THROUGHOUT SHIFT, NO SIGNIFICANT CHANGES. RECTAL TUBE IN PLACE. SAFETY MEASURES IN PLACE: CALL LIGHT WITHIN REACH, SIDE RAILS UP X 2, BED LOCKED IN LOWEST POSITION, BED ALARM ON. WILL ENDORSE TO DAYSHIFT RN FOR CONTINUITY OF CARE
[2022-08-06] MEDS: INSULIN REGULAR, HUMAN 100 UNIT/ML 3 ML VIAL SQ PRN ×2 (07:00→22:45)
[2022-08-06] MEDS: BLOOD SUGAR DIAGNOSTIC 1 EACH STRIP IN SCH ×4 (07:00→22:45)
--- NOTE | 2022-08-06 07:30 | NUR ---
RN MS NOTES PT IN BED, AWAKE, ALERT AND VERBALLY RESPONSIVE, ABLE TO MAKE NEEDS KNOWN, DENIES PAIN, NOT IN DISTRESS, ASSISTED WITH BREAKFAST, KEPT COMFORTABLE.
[2022-08-06 08:00] VITALS: BP 112/52
[2022-08-06] MEDS: LACTULOSE 10 G/15 ML UDC (PYXIS) PO SCH ×2 (08:14→16:49)
[2022-08-06] MEDS: FERROUS SULFATE (325 MG) 325 MG/TAB TABLET PO SCH (08:15)
[2022-08-06] MEDS: PANTOPRAZOLE 40 MG VIAL IV SCH (08:15)
[2022-08-06] MEDS: MUPIROCIN OINT 2% 22 GM TUBE NS SCH ×2 (08:16→21:29)
[2022-08-06 08:50] LABS: ALBUMIN 1.6 g/dL (3.4-5.0); BILIRUBIN,TOTAL 0.6 mg/dL (0.2-1.0); CALCIUM, SERUM 7.3 mg/dL (8.5-10.1); CREATININE 1.1 mg/dL (0.6-1.3); POTASSIUM 3.1 mmol/L (3.5-5.1); TOTAL PROTEIN, SERUM 5.9 g/dL (6.4-8.2)
[2022-08-06] MEDS: METOPROLOL TARTRATE 25 MG TABLET PO SCH ×2 (08:51→16:50)
[2022-08-06] MEDS: AMLODIPINE BESYLATE 10 MG TABLET PO SCH (08:51)
[2022-08-06 08:57] LABS: BASOPHILS % (AUTO) 0.3 % (0.0-2.0); EOSINOPHILS % (AUTO) 3.2 % (0.0-6.0); HEMATOCRIT 22 % (39-51); HEMOGLOBIN 7.1 g/dL (13.5-17.5); LYMPHOCYTES # (AUTO) 0.4 K/uL (0.8-4.8); LYMPHOCYTES % (AUTO) 5.2 % (20.0-44.0); MEAN CORPUSCULAR HGB CONC 32 g/dl (31.0-36.0); MEAN CORPUSCULAR VOLUME 88 fL (80-96); MONOCYTES # (AUTO) 0.4 K/uL (0.1-1.30); MONOCYTES % (AUTO) 4.9 % (2.0-12.0); NEUTROPHILS % (AUTO) 86.4 % (43.0-81.0); PLATELET COUNT (AUTO) 194 K/uL (150-450); RED BLOOD CELL COUNT(AUTO) 2.48 MIL/uL (4.5-6.0); WHITE BLOOD COUNT (AUTO) 8.1 K/uL (4.3-11.0)
[2022-08-06] MEDS ORDERED: POTASSIUM CHLORIDE 20 MEQ TAB.PRT.SR PO ONE (09:30)
--- NOTE | 2022-08-06 09:36 | NUR ---
WOUND CARE FOLLOW UP: PT CONTINUES TO PRESENT WITH SACRAL DEEP TISSUE INJURY (NOW IN EVOLUTION) WHICH WAS PRESENT ON ADMISSION. DR VELASQUEZ CALLED FOR SURGICAL CONSULT. PT NOW HAS RECTAL TUBE BUT CONTINUES TO BE INCONTINENT OF URINE. RN TO DISCUSS WITH PMD. PT IS NOT A CANDIDATE FOR CONDOM CATH PENIS IS INVERTED. PT IS ON BARIMAX ETS AIR BED. DISCUSSED SKIN PROTECTION WITH NURSING STAFF. MD IN AGREEMENT WITH PLAN OF CARE.
[2022-08-06] MEDS: CLOTRIMAZOLE 1% 15 GM TUBE TP SCH ×2 (10:04→18:00)
[2022-08-06] MEDS: DIGOXIN 0.25 MG TABLET PO SCH (13:08)
[2022-08-06 16:21] VITALS: BP 142/77
--- NOTE | 2022-08-06 17:57 | NUR ---
RN MS NOTES CALLED PHARMACY FOR REFILL OF LOTRIMIN CREAM 1% @0698
--- NOTE | 2022-08-06 18:45 | NUR ---
RN MS NOTES PT IN BED, RESTING, NO COMPLAINT OF PAIN OR ANY DISCOMFORT, RESPIRATIONS NORMAL, CALL LIGHT WITHIN REACH, ASSISTED WITH DINNER, MIDLINE INSERTED AT RIGHT UPPER ARM, TOLERATED WELL, WOUND TREATMENTS DONE, KEPT CLEAN AND COMFORTABLE.
--- NOTE | 2022-08-06 19:55 | NUR ---
MS RN OPENING NOTE PATIENT AWAKE IN BED, ALERT/ORIENTED X 3, PT NOTED WITH DELAYED SPEECH, PT ABLE TO MAKE NEEDS KNOWN. FAMILY AT BEDSIDE, PER FAMILY THEY HAVEN'T BEEN ABLE TO SPEAK TO MD FOR AN UPDATE, NOTIFIED CHARGE NURSE [place]. PT STABLE ON RA, NO S/S OF DISTRESS OR SOB NOTED, BREATHING EVEN AND UNLABORED. IV ACCESS LIANET MIDLINE INTACT AND SALINE LOCKED. RECTAL TUBE IN PLACE WITH BLACK LIQUID STOOL NOTED. SAFETY MEASURES IN PLACE: CALL LIGHT WITHIN REACH, SIDE RAILS UP X 2, BED LOCKED IN LOWEST POSITION, HOB ELEVATED, BED ALARM ON. WILL CONTINUE TO MONITOR PATIENT
[2022-08-06 20:00] VITALS: BP 102/59
[2022-08-06] MEDS: THERAHONEY GEL 1.5 OZ TUBE TP SCH (21:00)
--- NOTE | 2022-08-06 21:31 | NUR ---
MS RN NOTE ASCENCION NOT AVAILABLE ON PATIENT'S CASSETTE OR IN OMNICELL. PHARMACY CLOSED AT THIS TIME. WILL ENDORSE TO [facility] RN TO CALL PHARMACY IN AM
[2022-08-07 06:26] LABS: BASOPHILS % (AUTO) 0.3 % (0.0-2.0); EOSINOPHILS % (AUTO) 3.2 % (0.0-6.0); HEMATOCRIT 23 % (39-51); HEMOGLOBIN 7.5 g/dL (13.5-17.5); LYMPHOCYTES # (AUTO) 0.5 K/uL (0.8-4.8); LYMPHOCYTES % (AUTO) 7.2 % (20.0-44.0); MEAN CORPUSCULAR HGB CONC 32 g/dl (31.0-36.0); MEAN CORPUSCULAR VOLUME 87 fL (80-96); MONOCYTES # (AUTO) 0.4 K/uL (0.1-1.30); MONOCYTES % (AUTO) 5.2 % (2.0-12.0); NEUTROPHILS % (AUTO) 84.1 % (43.0-81.0); PLATELET COUNT (AUTO) 218 K/uL (150-450); RED BLOOD CELL COUNT(AUTO) 2.68 MIL/uL (4.5-6.0); WHITE BLOOD COUNT (AUTO) 7.1 K/uL (4.3-11.0)
[2022-08-07] MEDS: BLOOD SUGAR DIAGNOSTIC 1 EACH STRIP IN SCH ×4 (06:45→22:52)
[2022-08-07] MEDS: INSULIN REGULAR, HUMAN 100 UNIT/ML 3 ML VIAL SQ PRN ×2 (06:45→22:59)
--- NOTE | 2022-08-07 06:59 | NUR ---
MS RN CLOSING NOTE PATIENT AWAKE IN BED, ALERT/ORIENTED X 2-3, PT NOTED WITH DELAYED SPEECH, PT ABLE TO MAKE NEEDS KNOWN. PT STABLE ON RA, NO S/S OF DISTRESS OR SOB NOTED, BREATHING EVEN AND UNLABORED. IV ACCESS LIANET MIDLINE & RIGHT HAND #24G INTACT AND SALINE LOCKED. RECTAL TUBE IN PLACE WITH BLACK LIQUID STOOL NOTED, BAG CHANGED THIS AM. MEDICATIONS GIVEN ORDERED, PT NEEDS MET THROUGHOUT SHIFT, WOUND CARE DONE. SAFETY MEASURES IN PLACE: CALL LIGHT WITHIN REACH, SIDE RAILS UP X 2, BED LOCKED IN LOWEST POSITION, HOB ELEVATED, BED ALARM ON. WILL ENDORSE TO DAYSHIFT RN FOR CONTINUITY OF CARE
[2022-08-07 07:14] LABS: ALBUMIN 1.6 g/dL (3.4-5.0); BILIRUBIN,TOTAL 0.6 mg/dL (0.2-1.0); CALCIUM, SERUM 7.6 mg/dL (8.5-10.1); POTASSIUM 3.6 mmol/L (3.5-5.1)
--- NOTE | 2022-08-07 07:47 | NUR ---
RN MS NOTES PT IN BED, AWAKE, ALERT AND ORIENTED, NO COMPLAINT AT THIS TIME, RESPIRATIONS NORMAL, CALL LIGHT WITHIN REACH, SEEN AND EXAMINED BY DR. GALINDO, PLAN OF CARE DISCUSSED WITH PT, VERBALIZED UNDERSTANDING, KEPT PT COMFORTABLE IN BED.
[2022-08-07 08:00] VITALS: BP 123/63
[2022-08-07] MEDS: PANTOPRAZOLE 40 MG VIAL IV SCH (08:55)
[2022-08-07] MEDS: METOPROLOL TARTRATE 25 MG TABLET PO SCH ×2 (08:57→17:24)
[2022-08-07] MEDS: LACTULOSE 10 G/15 ML UDC (PYXIS) PO SCH ×2 (08:57→17:21)
[2022-08-07] MEDS: MUPIROCIN OINT 2% 22 GM TUBE NS SCH ×2 (09:15→21:50)
[2022-08-07] MEDS: CLOTRIMAZOLE 1% 15 GM TUBE TP SCH ×2 (09:15→17:31)
[2022-08-07] MEDS: IV D5W 1,000 ML IV SCH ×2 (11:53→21:50)
[2022-08-07] MEDS: DIGOXIN 0.25 MG TABLET PO SCH (12:40)
[2022-08-07] MEDS: THERAHONEY GEL 1.5 OZ TUBE TP SCH (12:43)
[2022-08-07 16:00] VITALS: BP 123/63
--- NOTE | 2022-08-07 18:26 | NUR ---
RN MS NOTES PT IN BED, AWAKE, ALERT AND ORIENTED, NO COMPLAINT AT THIS TIME, RESPIRATIONS NORMAL, CALL LIGHT WITHIN REACH, PM CARE PROVIDED, ASSISTED WITH DINNER, SEEN BY DR. GALINDO THIS MORNING, NEEDS ATTENDED.
--- NOTE | 2022-08-07 19:20 | NUR ---
MS RN OPENING NOTE PATIENT SLEEPING IN BED. PT ALERT/ORIENTED X 3, WITH DELAYED SPEECH. ABLE TO MAKE NEEDS KNOWN. FAMILY AT BEDSIDE. PT STABLE ON RA, NO S/S OF DISTRESS OR SOB NOTED, BREATHING EVEN AND UNLABORED. IV ACCESS RIGHT UA MIDLINE, INTACT, AND SALINE LOCKED. RECTAL TUBE IN PLACE WITH BLACK LIQUID STOOL NOTED. SAFETY MEASURES IN PLACE: CALL LIGHT WITHIN REACH, SIDE RAILS UP X 2, BED LOCKED IN LOWEST POSITION, HOB ELEVATED, BED ALARM ON. WILL CONTINUE TO MONITOR PATIENT.
[2022-08-07 20:00] VITALS: BP 120/64
[2022-08-08] MEDS: IV D5W 1,000 ML IV SCH ×2 (05:00→10:47)
[2022-08-08 06:36] LABS: BASOPHILS % (AUTO) 0.4 % (0.0-2.0); EOSINOPHILS % (AUTO) 2.3 % (0.0-6.0); HEMATOCRIT 24 % (39-51); HEMOGLOBIN 7.5 g/dL (13.5-17.5); LYMPHOCYTES # (AUTO) 0.5 K/uL (0.8-4.8); LYMPHOCYTES % (AUTO) 6.4 % (20.0-44.0); MEAN CORPUSCULAR HGB CONC 32 g/dl (31.0-36.0); MEAN CORPUSCULAR VOLUME 93 fL (80-96); MONOCYTES # (AUTO) 0.5 K/uL (0.1-1.30); MONOCYTES % (AUTO) 5.7 % (2.0-12.0); NEUTROPHILS # (AUTO) 6.9 K/uL (1.8-8.9); NEUTROPHILS % (AUTO) 85.2 % (43.0-81.0); PLATELET COUNT (AUTO) 156 K/uL (150-450); RED BLOOD CELL COUNT(AUTO) 2.55 MIL/uL (4.5-6.0)
--- NOTE | 2022-08-08 07:00 | NUR ---
MS RN CLOSING NOTE PATIENT AWAKE IN BED, ALERT/ORIENTED X 2-3, WITH DELAYED SPEECH. ABLE TO MAKE NEEDS KNOWN. STABLE ON RA, NO S/S OF DISTRESS OR SOB NOTED, BREATHING EVEN AND UNLABORED. IV ACCESS RIGHT UA MIDLINE & RIGHT HAND #24G INTACT AND SALINE LOCKED. RECTAL TUBE IN PLACE WITH BLACK LIQUID STOOL NOTED, BAG CHANGED THIS AM AT 0600. MEDICATIONS GIVEN ORDERED, PT NEEDS MET THROUGHOUT SHIFT, WOUND CARE DONE. SAFETY MEASURES IN PLACE: CALL LIGHT WITHIN REACH, SIDE RAILS UP X 2, BED LOCKED IN LOWEST POSITION, HOB ELEVATED, BED ALARM ON. WILL ENDORSE TO DAYSHIFT RN FOR CONTINUITY OF CARE.
--- NOTE | 2022-08-08 07:25 | NUR ---
MS RN RECEIVED ON BED, AWAKE,ALERT,ORIENTED X2-3,NOT IN ANY FORM OF DISTRESS, RESPIRATIONS EVEN AND UNLABORED,NO SOB NOTED, LUNGS ARE DIMINISHED,ABDOMEN SOFT,POSITIVE BOWEL SOUNDS, DENIES PAIN AT THIS TIME, RECTAL TUBE INTACT W/ DARK STOOL COLOR, DENIES PAIN AT THIS TIME, WILL CONTINUE TO MONITOR.
[2022-08-08] MEDS: BLOOD SUGAR DIAGNOSTIC 1 EACH STRIP IN SCH ×4 (07:48→21:27)
[2022-08-08] MEDS: INSULIN REGULAR, HUMAN 100 UNIT/ML 3 ML VIAL SQ PRN ×2 (07:48→21:29)
[2022-08-08 08:00] VITALS: BP 111/68
[2022-08-08 08:09] LABS: POTASSIUM 3.2 mmol/L (3.5-5.1)
[2022-08-08] MEDS ORDERED: LACT10SO58 PO (08:38)
[2022-08-08] MEDS ORDERED: PANT40TA2 PO (08:38)
[2022-08-08] MEDS ORDERED: POTASSIUM CHLORIDE 20 MEQ TAB.PRT.SR PO ONE (09:00)
--- NOTE | 2022-08-08 09:17 | NUR ---
MS DONNELLY BREAKFAST SERVED,DUE MEDS GIVEN,TOLERATED WELL.
[2022-08-08] MEDS: LACTULOSE 10 G/15 ML UDC (PYXIS) PO SCH ×2 (09:51→17:23)
[2022-08-08] MEDS: PANTOPRAZOLE 40 MG VIAL IV SCH (09:51)
[2022-08-08] MEDS: METOPROLOL TARTRATE 25 MG TABLET PO SCH ×2 (09:52→17:24)
[2022-08-08] MEDS: CLOTRIMAZOLE 1% 15 GM TUBE TP SCH ×2 (10:53→17:42)
[2022-08-08] MEDS: THERAHONEY GEL 1.5 OZ TUBE TP SCH (10:53)
[2022-08-08] MEDS: MUPIROCIN OINT 2% 22 GM TUBE NS SCH (10:54)
[2022-08-08] MEDS: DIGOXIN 0.25 MG TABLET PO SCH (14:55)
--- NOTE | 2022-08-08 15:00 | NUR ---
ms rn called casey saw operator, patient has discharge order, casey saw operator will call what time for d/c.
[2022-08-08 16:00] VITALS: BP 117/59
--- NOTE | 2022-08-08 18:44 | NUR ---
ms rn on bed, no distress noted,all needs attended.discharge cancelled per watch caser.
--- NOTE | 2022-08-08 19:40 | NUR ---
RN OPENING NOTES RECEIVED PT IN BED, ASLEEP, AWAKE WITH FAMILY AT BEDSIDE. AOx3, ABLE TO MAKE NEEDS KNOWN. ON RA AND TOLERATING WELL. NO SOB NOTED. NO S/SX OF RESPIRATORY DISTRESS NOTED. IV ACCESS IN LIANET MIDLINE #18G AND R HAND #24G RUNNING D5W @ 100ML/HR. SAFETY PRECAUTIONS IN PLACE: BED IN LOWEST, LOCKED POSITION, SIDERAILS UPx2, AND BRAKES ON. TABLE AND CALL LIGHT WITHIN REACH. ALL NEEDS MET AT THIS TIME.
[2022-08-08 20:00] VITALS: BP 108/64
[2022-08-09] VITALS (8 sets, daily range): BP systolic 99–116; BP diastolic 51–64
[2022-08-09] MEDS: IV D5W 1,000 ML IV SCH (01:45)
[2022-08-09] MEDS: BLOOD SUGAR DIAGNOSTIC 1 EACH STRIP IN SCH ×4 (06:30→21:46)
[2022-08-09] MEDS: INSULIN REGULAR, HUMAN 100 UNIT/ML 3 ML VIAL SQ PRN (06:31)
--- NOTE | 2022-08-09 06:50 | NUR ---
RN CLOSING NOTES PT IN BED, ASLEEP, AWAKENS TO VERBAL STIMULI. AOx3, ABLE TO MAKE NEEDS KNOWN. ON RA AND TOLERATING WELL. NO SOB NOTED. NO S/SX OF RESPIRATORY DISTRESS NOTED. IV ACCESS IN LIANET MIDLINE #18G AND R HAND #24G RUNNING D5W @ 100ML/HR. ALL ORDERS CARRIED OUT. ALL NEEDS MET. PT KEPT CLEAN AND DRY. SAFETY PRECAUTIONS IN PLACE: BED IN LOWEST, LOCKED POSITION, SIDERAILS UPx2, AND BRAKES ON. TABLE AND CALL LIGHT WITHIN REACH. WILL ENDORSE TO ONCOMING SHIFT FOR DASIA.
--- NOTE | 2022-08-09 07:30 | NUR ---
RN MS NOTES PT IN BED, ASLEEP, EASY TO AROUSE, ALERT AND ORIENTED, NO SIGN OF PAIN OR DISTRESS, CALL LIGHT WITHIN REACH, KEPT WARM AND COMFORTABLE IN BED.
[2022-08-09 08:21] LABS: BASOPHILS % (AUTO) 0.3 % (0.0-2.0); EOSINOPHILS % (AUTO) 2.3 % (0.0-6.0); LYMPHOCYTES # (AUTO) 0.4 K/uL (0.8-4.8); LYMPHOCYTES % (AUTO) 5.4 % (20.0-44.0); MEAN CORPUSCULAR HGB CONC 33 g/dl (31.0-36.0); MEAN CORPUSCULAR VOLUME 86 fL (80-96); MONOCYTES # (AUTO) 0.4 K/uL (0.1-1.30); MONOCYTES % (AUTO) 4.7 % (2.0-12.0); NEUTROPHILS # (AUTO) 6.7 K/uL (1.8-8.9); NEUTROPHILS % (AUTO) 87.3 % (43.0-81.0); PLATELET COUNT (AUTO) 218 K/uL (150-450); RED BLOOD CELL COUNT(AUTO) 2.27 MIL/uL (4.5-6.0); WHITE BLOOD COUNT (AUTO) 7.7 K/uL (4.3-11.0)
[2022-08-09] MEDS: LACTULOSE 10 G/15 ML UDC (PYXIS) PO SCH ×2 (08:38→16:52)
[2022-08-09] MEDS: PANTOPRAZOLE 40 MG/PACK PACK PO SCH (08:38)
[2022-08-09] MEDS: METOPROLOL TARTRATE 25 MG TABLET PO SCH ×2 (08:40→16:45)
[2022-08-09 08:51] LABS: CALCIUM, SERUM 7.4 mg/dL (8.5-10.1)
[2022-08-09 08:59] LABS: POTASSIUM 2.8 mmol/L (3.5-5.1)
[2022-08-09] MEDS: THERAHONEY GEL 1.5 OZ TUBE TP SCH (09:00)
[2022-08-09] MEDS: CLOTRIMAZOLE 1% 15 GM TUBE TP SCH ×2 (09:00→16:52)
[2022-08-09 09:37] LABS: HEMATOCRIT 20 % (39-51); HEMOGLOBIN 6.4 g/dL (13.5-17.5)
[2022-08-09] MEDS: POTASSIUM CHLORIDE 20 MEQ POWDER PACKET PO SCH ×3 (12:12→14:18)
[2022-08-09] MEDS: DIGOXIN 0.25 MG TABLET PO SCH (12:12)
[2022-08-09 13:16] LABS: EOSINOPHILS % (MANUAL) 3 % (0-4); LYMPHOCYTES % (MANUAL) 4 % (16-48); MONOCYTES % (MANUAL) 5 % (0-11.0); MYELOCYTES % 1 % (0-0); NEUTROPHILS % (MANUAL) 87 (42-76)
--- NOTE | 2022-08-09 13:30 | NUR ---
RN MS NOTES CALLED BLOOD BANK TO FOLLOW UP PRBC, STILL WORKING ON IT PER JOSÉ MIGUEL, PT IS AWAKE, ALERT AND ORIENTED, NO COMPLAINT AT THIS TIME, NOT IN DISTRESS, ASSISTED WITH LUNCH, DUE MEDS GIVEN.
[2022-08-09] MEDS ORDERED: POTASSIUM CHLORIDE 20 MEQ TAB.PRT.SR PO ONE (14:30)
--- NOTE | 2022-08-09 15:26 | NUR ---
RN MS NOTES FOLLOWED UP PRBC WITH BLOOD BANK, SPOKE WITH ARAVIND, PRBC STILL NOT AVAILABLE, WILL CONTINUE TO FOLLOW UP.
--- NOTE | 2022-08-09 17:32 | NUR ---
RN MS NOTES CALLED BLOOD BANK AND SPOKE WITH ARAVIND TO FOLLOW UP PRBC FOR PT, SAID THAT BLOOD IS STILL NOT AVAILABLE AT THIS TIME, ASKED FOR AN ESTIMATED TIME THAT IT WILL BE AVAILABLE, SAID THAT THERE IS NO SPECIFIC TIME, WILL CONTINUE TO FOLLOW UP.
--- NOTE | 2022-08-09 18:43 | NUR ---
RN MS NOTES PT IN BED, RESTING, ASLEEP, EASY TO AROUSE, ALERT AND ORIENTED, ABLE TO MAKE NEEDS KNOWN, NO COMPLAINT OF PAIN, NOT IN DISTRESS, PM CARE PROVIDED, DRESSING CHANGE AND TREATMENT DONE TO SACRAL ULCER, VITALS TAKEN AND RECORDED, INITIATED BLOOD TRANSFUSION, TOLERATES WELL SO FAR, WILL CONTINUE TO MONITOR, WILL ENDORSE TO INCOMING HTML WEB DEVELOPER NURSE FOR CONTINUITY OF CARE AND MONITORING.
--- NOTE | 2022-08-09 20:00 | NUR ---
RN OPENING NOTES RECEIVED PATIENT IN BED AWAKE. AOx3, ABLE TO MAKE NEEDS KNOWN. ON ROOM AIR AND TOLERATING WELL. NO SOB NOTED. NO S/SX OF RESPIRATORY DISTRESS NOTED. IV ACCESS IN LIANET MIDLINE #18G AND R HAND, SALINE LOCK, PATENT AND INFUSING WELL. WITH ONGOING BLOOD TRANSFUSION 1 UNIT OF PACKED RBC, VITAL SIGNS MONITORED EVERY HOUR. NO SIGNS OF ALLERGIC REACTION NOTED AT THIS TIME. SAFETY PRECAUTIONS IN PLACE: BED IN LOWEST, LOCKED POSITION, SIDERAILS UPx2, AND BRAKES ON. TABLE AND CALL LIGHT WITHIN REACH. WILL CONTINUE TO MONITOR.
--- NOTE | 2022-08-09 21:37 | NUR ---
RN NOTES BLOOD TRANSFUSION DONE. NO S/S OF UNTOWARD/ ALLERGIC REACTIONS NOTED. WILL CONTINUE TO MONITOR.
[2022-08-10 06:34] LABS: BASOPHILS % (AUTO) 0.3 % (0.0-2.0); EOSINOPHILS % (AUTO) 2.3 % (0.0-6.0); HEMATOCRIT 21 % (39-51); HEMOGLOBIN 7.2 g/dL (13.5-17.5); LYMPHOCYTES # (AUTO) 0.3 K/uL (0.8-4.8); LYMPHOCYTES % (AUTO) 3.8 % (20.0-44.0); MEAN CORPUSCULAR HGB CONC 34 g/dl (31.0-36.0); MEAN CORPUSCULAR VOLUME 88 fL (80-96); MONOCYTES # (AUTO) 0.3 K/uL (0.1-1.30); MONOCYTES % (AUTO) 4.2 % (2.0-12.0); NEUTROPHILS % (AUTO) 89.4 % (43.0-81.0); PLATELET COUNT (AUTO) 237 K/uL (150-450); RED BLOOD CELL COUNT(AUTO) 2.42 MIL/uL (4.5-6.0); WHITE BLOOD COUNT (AUTO) 7.8 K/uL (4.3-11.0)
[2022-08-10] MEDS: BLOOD SUGAR DIAGNOSTIC 1 EACH STRIP IN SCH ×4 (06:44→22:01)
[2022-08-10 06:49] LABS: BILIRUBIN,TOTAL 0.8 mg/dL (0.2-1.0); CALCIUM, SERUM 7.7 mg/dL (8.5-10.1); MAGNESIUM 2.1 mg/dL (1.8-2.4); PHOSPHORUS 2.5 mg/dL (2.5-4.9); TOTAL PROTEIN, SERUM 5.9 g/dL (6.4-8.2)
[2022-08-10 06:53] LABS: ALBUMIN 1.4 g/dL (3.4-5.0)
--- NOTE | 2022-08-10 07:34 | NUR ---
RN CLOSING NOTES PT IN BED, ASLEEP, AWAKENS TO VERBAL STIMULI. AOx3, ABLE TO MAKE NEEDS KNOWN. ON RA AND TOLERATING WELL. NO SOB NOTED. NO S/SX OF RESPIRATORY DISTRESS NOTED. IV ACCESS IN LIANET MIDLINE #18G AND R HAND #24G, SALINE LOCK. ALL NEEDS MET. PT KEPT CLEAN AND DRY. SAFETY PRECAUTIONS IN PLACE: BED IN LOWEST, LOCKED POSITION, SIDERAILS UPx2, AND BRAKES ON. TABLE AND CALL LIGHT WITHIN REACH. WILL ENDORSE TO ONCOMING SHIFT FOR DASIA.
--- NOTE | 2022-08-10 07:40 | NUR ---
RN OPENING NOTES RECEIVED PATIENT IN BED AWAKE. AOx3, ABLE TO MAKE NEEDS KNOWN. ON ROOM AIR AND TOLERATING WELL. NO SOB NOTED. NO S/SX OF RESPIRATORY DISTRESS NOTED. IV ACCESS IN LIANET MIDLINE #18G AND R HAND, SALINE LOCK, PATENT AND INFUSING WELL. THIS TIME. SAFETY PRECAUTIONS IN PLACE: BED IN LOWEST, LOCKED POSITION, SIDERAILS UPx2, AND BRAKES ON. TABLE AND CALL LIGHT WITHIN REACH. WILL CONTINUE TO MONITOR.
[2022-08-10 08:00] VITALS: BP 108/60
[2022-08-10] MEDS: PANTOPRAZOLE 40 MG/PACK PACK PO SCH (08:44)
[2022-08-10] MEDS: LACTULOSE 10 G/15 ML UDC (PYXIS) PO SCH ×2 (08:45→16:32)
[2022-08-10] MEDS: METOPROLOL TARTRATE 25 MG TABLET PO SCH ×2 (08:49→17:31)
[2022-08-10] MEDS: CLOTRIMAZOLE 1% 15 GM TUBE TP SCH ×2 (10:05→16:36)
[2022-08-10] MEDS: THERAHONEY GEL 1.5 OZ TUBE TP SCH (10:05)
[2022-08-10] MEDS ORDERED: POTASSIUM CHLORIDE 20 MEQ TAB.PRT.SR PO ONE (12:00)
[2022-08-10] MEDS: INSULIN REGULAR, HUMAN 100 UNIT/ML 3 ML VIAL SQ PRN ×2 (12:22→22:05)
[2022-08-10] MEDS: DIGOXIN 0.25 MG TABLET PO SCH (12:29)
[2022-08-10 16:00] VITALS: BP 105/74
[2022-08-10] MEDS: GLUCERNA SHAKE 237 ML CAN PO SCH ×2 (16:27→17:32)
--- NOTE | 2022-08-10 18:18 | NUR ---
RN CLOSING NOTES PT IN BED, ASLEEP, AWAKENS TO VERBAL STIMULI. AOx3, ABLE TO MAKE NEEDS KNOWN. ON RA AND TOLERATING WELL. NO SOB NOTED. NO S/SX OF RESPIRATORY DISTRESS NOTED. IV ACCESS IN LIANET MIDLINE #18G AND R HAND #24G, SALINE LOCK. ALL NEEDS MET. PT KEPT CLEAN AND DRY. WOUND DRESSING DONE. SAFETY PRECAUTIONS IN PLACE: BED IN LOWEST, LOCKED POSITION, SIDERAILS UPx2, AND BRAKES ON. TABLE AND CALL LIGHT WITHIN REACH. WILL ENDORSE TO ONCOMING SHIFT FOR DASIA
--- NOTE | 2022-08-10 19:25 | NUR ---
MS RN OPENING NOTE RECEIVED PATIENT IN BED, ASLEEP. AOx3, ABLE TO MAKE NEEDS KNOWN. ON ROOM AIR, AND TOLERATING RA WELL. NO SOB, NO S/S OF RESPIRATORY DISTRESS NOTED. IV ACCESS IN RIGHT UA MIDLINE #18G, AND RIGHT HAND, SALINE LOCK, PATENT AND INFUSING WELL. SAFETY PRECAUTIONS IN PLACE: BED LOCKED, IN LOW POSITION, SIDE RAILS UP x2, AND BRAKES ON. BED SIDE TABLE AND CALL LIGHT WITHIN REACH. WILL CONTINUE TO MONITOR.
[2022-08-10 20:00] VITALS: BP 102/54
--- NOTE | 2022-08-10 22:33 | NUR ---
MS RN NOTE RECEIVE CALL FROM [facility] FROM [employer], REGARDING PT'S PLACEMENT. SHE STATES THAT SHE HASN'T BEEN ABLE TO FIND PLACEMENT FOR PT YET, BUT SHE IS STILL WORKING ON IT. SHE WILL CONTACT [employer] TOMORROW TO DISCUSS IT.
--- NOTE | 2022-08-11 06:57 | NUR ---
MS RN CLOSING NOTE LEFT PT IN BED, ASLEEP, AWAKENS TO VERBAL STIMULI. PT A/O x3, ABLE TO MAKE NEEDS KNOWN. ON RA, AND TOLERATING RA WELL. NO SOB NOTED. NO S/S OF RESPIRATORY DISTRESS NOTED. IV ACCESS TO LIANET MIDLINE #18G, AND RIGHT HAND #24G, SALINE LOCKED. ALL NEEDS ATTENDED, AND MEDS GIVEN ON TIMELY MANNER. WOUND DRESSING CHANGED. SAFETY PRECAUTIONS IN PLACE: BED IN LOWEST, LOCKED POSITION, SIDE RAILS UP x2, AND BRAKES ON. BED SIDE TABLE, AND CALL LIGHT WITHIN REACH. WILL ENDORSE TO ONCOMING SHIFT NURSE FOR CONTINUITY OF CARE.
[2022-08-11 06:59] LABS: BASOPHILS % (AUTO) 0.2 % (0.0-2.0); EOSINOPHILS % (AUTO) 1.9 % (0.0-6.0); HEMATOCRIT 22 % (39-51); HEMOGLOBIN 7.4 g/dL (13.5-17.5); LYMPHOCYTES # (AUTO) 0.4 K/uL (0.8-4.8); LYMPHOCYTES % (AUTO) 4.9 % (20.0-44.0); MEAN CORPUSCULAR HGB CONC 33 g/dl (31.0-36.0); MEAN CORPUSCULAR VOLUME 89 fL (80-96); MONOCYTES # (AUTO) 0.3 K/uL (0.1-1.30); NEUTROPHILS # (AUTO) 6.5 K/uL (1.8-8.9); PLATELET COUNT (AUTO) 295 K/uL (150-450); RED BLOOD CELL COUNT(AUTO) 2.51 MIL/uL (4.5-6.0); WHITE BLOOD COUNT (AUTO) 7.4 K/uL (4.3-11.0)
[2022-08-11 07:19] LABS: CALCIUM, SERUM 7.6 mg/dL (8.5-10.1); CREATININE 0.8 mg/dL (0.6-1.3); POTASSIUM 3.1 mmol/L (3.5-5.1)
[2022-08-11] MEDS: BLOOD SUGAR DIAGNOSTIC 1 EACH STRIP IN SCH ×4 (07:34→21:12)
[2022-08-11] MEDS: GLUCERNA SHAKE 237 ML CAN PO SCH ×3 (08:00→18:51)
[2022-08-11] MEDS ORDERED: POTASSIUM CHLORIDE 20 MEQ TAB.PRT.SR PO ONE (08:00)
[2022-08-11] MEDS: PANTOPRAZOLE 40 MG/PACK PACK PO SCH (09:35)
[2022-08-11] MEDS: LACTULOSE 10 G/15 ML UDC (PYXIS) PO SCH ×2 (09:35→18:49)
[2022-08-11] MEDS: METOPROLOL TARTRATE 25 MG TABLET PO SCH ×2 (09:37→18:49)
[2022-08-11] MEDS: CLOTRIMAZOLE 1% 15 GM TUBE TP SCH ×2 (09:37→17:00)
[2022-08-11] MEDS: THERAHONEY GEL 1.5 OZ TUBE TP SCH (09:38)
[2022-08-11] MEDS: DIGOXIN 0.25 MG TABLET PO SCH (12:54)
[2022-08-11 16:00] VITALS: BP 118/72
--- NOTE | 2022-08-11 19:31 | NUR ---
MS RN CLOSING NOTE PT AWAKE IN BED AT THIS TIME. A/O x3, ABLE TO MAKE NEEDS KNOWN. ON RA, AND TOLERATING WELL. NO SOB NOTED. NO S/S OF RESPIRATORY DISTRESS NOTED. IV ACCESS TO LIANET MIDLINE #18G, AND RIGHT HAND #24G, SALINE LOCKED. ALL NEEDS ATTENDED, AND MEDS GIVEN ON TIMELY MANNER. WOUND DRESSING CHANGED. SAFETY PRECAUTIONS IN PLACE: BED IN LOWEST, LOCKED POSITION, SIDE RAILS UP x2, AND BRAKES ON. BED SIDE TABLE, AND CALL LIGHT WITHIN REACH. WILL ENDORSE TO ONCOMING SHIFT NURSE FOR CONTINUITY OF CARE.
--- NOTE | 2022-08-11 19:31 | NUR ---
RN OPENING NOTE PATIENT AWAKE IN BED. A/OX3. NO S/S OF DISTRESS, BREATHING WITHOUT DIFFICULTY ON ROOM AIR. LIANET MIDLINE #18 SL INTACT AND PATENT. R-HAND #24 SL INTACT BUT NOT EASILY PATENT (WILL FOLLOW-UP). SAFETY MEASURES IN PLACE: BED LOCKED AND AT LOWEST POSITION, RAILS UP X2, CALL DOMINGUEZ WITHIN REACH. WILL CONTINUE TO MONITOR PATIENT.
[2022-08-11 20:00] VITALS: BP 120/75
[2022-08-11] MEDS: INSULIN REGULAR, HUMAN 100 UNIT/ML 3 ML VIAL SQ PRN (21:14)
[2022-08-12 05:57] LABS: BASOPHILS % (AUTO) 0.2 % (0.0-2.0); EOSINOPHILS % (AUTO) 0.9 % (0.0-6.0); HEMATOCRIT 24 % (39-51); HEMOGLOBIN 7.8 g/dL (13.5-17.5); LYMPHOCYTES # (AUTO) 0.3 K/uL (0.8-4.8); LYMPHOCYTES % (AUTO) 2.9 % (20.0-44.0); MEAN CORPUSCULAR HGB CONC 32 g/dl (31.0-36.0); MEAN CORPUSCULAR VOLUME 86 fL (80-96); MONOCYTES # (AUTO) 0.3 K/uL (0.1-1.30); MONOCYTES % (AUTO) 3.9 % (2.0-12.0); NEUTROPHILS % (AUTO) 92.1 % (43.0-81.0); PLATELET COUNT (AUTO) 305 K/uL (150-450); RED BLOOD CELL COUNT(AUTO) 2.81 MIL/uL (4.5-6.0); WHITE BLOOD COUNT (AUTO) 8.7 K/uL (4.3-11.0)
[2022-08-12 06:01] LABS: CREATININE 0.9 mg/dL (0.6-1.3)
[2022-08-12 06:11] LABS: POTASSIUM 2.8 mmol/L (3.5-5.1)
--- NOTE | 2022-08-12 06:22 | NUR ---
RN NOTE CRITICAL LAB VALUE OF POTASSIUM 2.8. ON-CALL MD HEREDIA NOTIFIED. NEW ORDER GIVEN OF 40MG KCl BID X2 DAILY. PATIENT O/W STABLE. WILL CONTINUE TO MONITOR.
--- NOTE | 2022-08-12 06:42 | NUR ---
RN CLOSING NOTE PATIENT ASLEEP IN BED. A/OX2. NO S/S OF DISTRESS, BREATHING WITHOUT DIFFICULTY ON ROOM AIR. LIANET MIDLINE #18 SL INTACT AND PATENT. SAFETY MEASURES IN PLACE: BED LOCKED AND AT LOWEST POSITION, RAILS UP X2, CALL DOMINGUEZ WITHIN REACH. WILL ENDORSE TO NEXT SHIFT FOR DASIA.
[2022-08-12 07:00] VITALS: BP 119/63
--- NOTE | 2022-08-12 07:40 | NUR ---
RN OPENING NOTE PATIENT AWAKE IN BED RESTING A/O X 12-3. NO S/S OF PAIN NOTED AT THIS TIME. ON ROOM AIR, NO DISTRESS OR SHORTNESS OF BREATH NOTED. IV ACCESS LIANET MIDLINE, INTACT, PATENT AND FLUSHING WELL. PATIENT HAVE A FLEXI SEAL, IN PLACE AND DRAINING WELL. FALL AND SAFETY MEASURES IN PLACE, BED ALARM ON, BED IN LOW AND LOCK POSITION, CALL LIGHT AND TABLE WITHIN EASY REACH, SIDE RAILS X2. WILL CONTINUE TO MONITOR. Addendum: 08/12/22 at 1618 by Berna Whittaker RN PATIENT AWAKE IN BED RESTING A/O X 2-3.
[2022-08-12] MEDS ORDERED: POTASSIUM CHLORIDE 20 MEQ TAB.PRT.SR PO ONE (08:00)
[2022-08-12] MEDS: PANTOPRAZOLE 40 MG/PACK PACK PO SCH (08:30)
[2022-08-12] MEDS: METOPROLOL TARTRATE 25 MG TABLET PO SCH ×2 (08:30→17:33)
[2022-08-12] MEDS: LACTULOSE 10 G/15 ML UDC (PYXIS) PO SCH ×2 (08:30→17:33)
[2022-08-12] MEDS: GLUCERNA SHAKE 237 ML CAN PO SCH ×3 (08:31→17:33)
[2022-08-12] MEDS: THERAHONEY GEL 1.5 OZ TUBE TP SCH (08:32)
[2022-08-12] MEDS: BLOOD SUGAR DIAGNOSTIC 1 EACH STRIP IN SCH ×4 (08:32→21:10)
[2022-08-12] MEDS: CLOTRIMAZOLE 1% 15 GM TUBE TP SCH ×2 (08:32→17:34)
[2022-08-12] MEDS: DIGOXIN 0.25 MG TABLET PO SCH (12:47)
--- NOTE | 2022-08-12 18:57 | NUR ---
RN CLOSING NOTE PATIENT AWAKE IN BED RESTING A/O X 2-3. NO S/S OF PAIN NOTED AT THIS TIME. ON ROOM AIR, NO DISTRESS OR SHORTNESS OF BREATH NOTED. IV ACCESS LIANET MIDLINE, INTACT, PATENT AND FLUSHING WELL. PATIENT HAVE A FLEXI SEAL, IN PLACE AND DRAINING WELL, OUTPUT 300ML, BAG WAS CHANGED. SCHEDULE MEDICATIONS ADMINISTERED. WOUND CARE IMPLEMENTED. FALL AND SAFETY MEASURES IN PLACE, BED ALARM ON, BED IN LOW AND LOCK POSITION, CALL LIGHT AND TABLE WITHIN EASY REACH, SIDE RAILS X2. WILL ENDORSE TO SKIN CARE THERAPIST. Addendum: 08/12/22 at 1902 by Berna Whittaker RN PATIENT WAS TURNED AND REPOSITIONED PER PROTOCOL.
--- NOTE | 2022-08-12 19:40 | NUR ---
MS RN OPENING NOTE RECEIVED PATIENT AWAKE IN BED A/O X 2-3. SAMI SPEAKING, NO S/S OF PAIN NOTED AT THIS TIME. ON ROOM AIR, NO DISTRESS OR SHORTNESS OF BREATH NOTED. IV ACCESS LIANET MIDLINE, INTACT, PATENT AND FLUSHING WELL. PATIENT HAVE A FLEXI SEAL, IN PLACE AND DRAINING WELL. FALL AND SAFETY MEASURES IN PLACE, BED ALARM ON, BED IN LOW AND LOCK POSITION, CALL LIGHT AND TABLE WITHIN EASY REACH, SIDE RAILS X2. WILL CONTINUE TO MONITOR THROUGHOUT THE SHIFT.
[2022-08-12 20:00] VITALS: BP 113/66
--- NOTE | 2022-08-12 21:10 | NUR ---
RN NOTE BS CHECKED AT 112 MG/DL, NO COVERAGE GIVEN PER SLIDING SCALE. WILL CONT TO MONITOR.
[2022-08-13 06:02] LABS: BASOPHILS % (AUTO) 0.3 % (0.0-2.0); HEMATOCRIT 22 % (39-51); HEMOGLOBIN 7.2 g/dL (13.5-17.5); LYMPHOCYTES # (AUTO) 0.3 K/uL (0.8-4.8); LYMPHOCYTES % (AUTO) 3.7 % (20.0-44.0); MEAN CORPUSCULAR HGB CONC 33 g/dl (31.0-36.0); MEAN CORPUSCULAR VOLUME 85 fL (80-96); MONOCYTES # (AUTO) 0.3 K/uL (0.1-1.30); MONOCYTES % (AUTO) 3.9 % (2.0-12.0); NEUTROPHILS # (AUTO) 6.7 K/uL (1.8-8.9); NEUTROPHILS % (AUTO) 91.1 % (43.0-81.0); PLATELET COUNT (AUTO) 291 K/uL (150-450); RED BLOOD CELL COUNT(AUTO) 2.57 MIL/uL (4.5-6.0); WHITE BLOOD COUNT (AUTO) 7.4 K/uL (4.3-11.0)
[2022-08-13 06:22] LABS: CALCIUM, SERUM 7.3 mg/dL (8.5-10.1); CREATININE 0.8 mg/dL (0.6-1.3); POTASSIUM 2.9 mmol/L (3.5-5.1)
--- NOTE | 2022-08-13 06:30 | NUR ---
MS RN CLOSING NOTE PATIENT RESTING IN BED A/O X 2-3 WITH DELAYED SPEECH, NO S/S OF PAIN NOTED AT THIS TIME. ON ROOM AIR, NO DISTRESS OR SHORTNESS OF BREATH NOTED. IV ACCESS LIANET MIDLINE, INTACT, PATENT AND FLUSHING WELL. PATIENT HAVE A FLEXI SEAL, IN PLACE AND DRAINING WELL. ALL DUE MEDS GIVEN, KEPT DRY AND CLEAN, WOUND CARE DONE, FALL AND SAFETY MEASURES IN PLACE, BED ALARM ON, BED IN LOW AND LOCK POSITION, CALL LIGHT AND TABLE WITHIN EASY REACH, SIDE RAILS X2. WILL ENDORSE TO AM SHIFT NURSE FOR CONTINUITY OF CARE.
--- NOTE | 2022-08-13 07:59 | NUR ---
RN OPENING NOTE PATIENT AWAKE IN BED RESTING A/O X 2-3. NO S/S OF PAIN NOTED AT THIS TIME. ON ROOM AIR, NO DISTRESS OR SHORTNESS OF BREATH NOTED. IV ACCESS LIANET MIDLINE, INTACT, PATENT AND FLUSHING WELL. PATIENT HAVE A FLEXI SEAL, IN PLACE AND DRAINING WELL. FALL AND SAFETY MEASURES IN PLACE, BED ALARM ON, BED IN LOW AND LOCK POSITION, CALL LIGHT AND TABLE WITHIN EASY REACH, SIDE RAILS X2. WILL CONTINUE TO MONITOR.
[2022-08-13 08:00] VITALS: BP 108/65
[2022-08-13] MEDS: PANTOPRAZOLE 40 MG/PACK PACK PO SCH (09:20)
[2022-08-13] MEDS: LACTULOSE 10 G/15 ML UDC (PYXIS) PO SCH ×2 (09:20→16:59)
[2022-08-13] MEDS: GLUCERNA SHAKE 237 ML CAN PO SCH ×3 (09:21→17:00)
[2022-08-13] MEDS: CLOTRIMAZOLE 1% 15 GM TUBE TP SCH ×2 (09:21→17:01)
[2022-08-13] MEDS: THERAHONEY GEL 1.5 OZ TUBE TP SCH (09:21)
[2022-08-13] MEDS: METOPROLOL TARTRATE 25 MG TABLET PO SCH ×2 (09:24→17:00)
[2022-08-13] MEDS: BLOOD SUGAR DIAGNOSTIC 1 EACH STRIP IN SCH ×4 (09:39→23:35)
[2022-08-13] MEDS: INSULIN REGULAR, HUMAN 100 UNIT/ML 3 ML VIAL SQ PRN (09:41)
[2022-08-13] MEDS ORDERED: POTASSIUM CHLORIDE 20 MEQ POWDER PACKET PO ONE (11:00)
[2022-08-13] MEDS: DIGOXIN 0.25 MG TABLET PO SCH (12:50)
[2022-08-13 16:00] VITALS: BP 107/59
--- NOTE | 2022-08-13 19:20 | NUR ---
MS RN OPENING NOTE RECEIVED PATIENT IN BED; AWAKE, ALERT AND ORIENTED X 2-3. TAJIK SPEAKING. ON ROOM AIR; TOLERATING WELL. BREATHING EVEN AND NONLABORED. NOT IN ANY FORM OR RESPIRATORY DISTRESS. NO S/S OF PAIN OR DISCOMFORT NOTED AT THIS TIME. WITH MIDLINE AT RIGHT UPPER ARM; PATENT, INTACT AND SALINE LOCKED. WITH FLEXISEAL IN PLACE; DRAINING WELL. FALL AND SAFETY PRECAUTIONS IMPLEMENTED: CALL LIGHT AND TABLE WITHIN REACH, SIDE RAILS UP X 3, BED ALARM ON, BED IN LOWEST LOCKED POSITION. WILL CONTINUE PLAN OF CARE.
--- NOTE | 2022-08-13 19:27 | NUR ---
RN CLOSING NOTE PATIENT AWAKE IN BED RESTING A/O X 2-3. NO S/S OF PAIN NOTED AT THIS TIME. ON ROOM AIR, NO DISTRESS OR SHORTNESS OF BREATH NOTED. IV ACCESS LIANET MIDLINE, INTACT, PATENT AND FLUSHING WELL. PATIENT HAVE A FLEXI SEAL, IN PLACE AND DRAINING WELL, OUTPUT 600ML, BAG WAS CHANGED. SCHEDULE MEDICATIONS ADMINISTERED. WOUND CARE IMPLEMENTED. PATIENT WAS TURNED AND REPOSITIONED PER PROTOCOL. FALL AND SAFETY MEASURES IN PLACE, BED ALARM ON, BED IN LOW AND LOCK POSITION, CALL LIGHT AND TABLE WITHIN EASY REACH, SIDE RAILS X2. WILL ENDORSE TO WAREHOUSE PICKER.
[2022-08-13 20:00] VITALS: BP 133/69
--- NOTE | 2022-08-14 06:50 | NUR ---
MS RN CLOSING NOTE PT IN BED; AWAKE, A/O X 2-3. STABLE ON ROOM AIR. BREATHING EQUAL AND UNLABORED. IN NO APPARENT DISTRESS. NO S/S OF PAIN OR DISCOMFORT NOTED AT THIS TIME. WITH MIDLINE AT RIGHT UPPER ARM; PATENT, INTACT AND SALINE LOCKED. WITH FLEXISEAL IN PLACE; DRAINING WELL. FALL AND SAFETY PRECAUTIONS MAINTAINED: CALL LIGHT AND TABLE WITHIN REACH, SIDE RAILS UP X 3, BED ALARM ON, BED IN LOWEST LOCKED POSITION. ENDORSED TO MORNING SHIFT FOR DASIA.
[2022-08-14 07:12] LABS: BASOPHILS % (AUTO) 0.2 % (0.0-2.0); EOSINOPHILS % (AUTO) 1.1 % (0.0-6.0); HEMATOCRIT 23 % (39-51); HEMOGLOBIN 7.7 g/dL (13.5-17.5); LYMPHOCYTES # (AUTO) 0.4 K/uL (0.8-4.8); LYMPHOCYTES % (AUTO) 4.1 % (20.0-44.0); MEAN CORPUSCULAR HGB CONC 33 g/dl (31.0-36.0); MEAN CORPUSCULAR VOLUME 85 fL (80-96); MONOCYTES # (AUTO) 0.4 K/uL (0.1-1.30); MONOCYTES % (AUTO) 4.5 % (2.0-12.0); NEUTROPHILS # (AUTO) 7.6 K/uL (1.8-8.9); NEUTROPHILS % (AUTO) 90.1 % (43.0-81.0); PLATELET COUNT (AUTO) 327 K/uL (150-450); RED BLOOD CELL COUNT(AUTO) 2.75 MIL/uL (4.5-6.0); WHITE BLOOD COUNT (AUTO) 8.5 K/uL (4.3-11.0)
--- NOTE | 2022-08-14 07:30 | NUR ---
MS RN OPENING NOTE RECEIVED PATIENT IN BED; AWAKE, ALERT AND ORIENTED X 2-3. KINYARWANDA SPEAKING. ON ROOM AIR; TOLERATING WELL. BREATHING EVEN AND NONLABORED. NOT IN ANY FORM OR RESPIRATORY DISTRESS. NO S/S OF PAIN OR DISCOMFORT NOTED AT THIS TIME. WITH MIDLINE AT RIGHT UPPER ARM; PATENT, INTACT AND SALINE LOCKED. WITH FLEXISEAL IN PLACE; DRAINING WELL. FALL AND SAFETY PRECAUTIONS IMPLEMENTED: CALL LIGHT AND TABLE WITHIN REACH, SIDE RAILS UP X 3, BED ALARM ON, BED IN LOWEST LOCKED POSITION. WILL CONTINUE PLAN OF CARE.
[2022-08-14 07:38] LABS: CALCIUM, SERUM 7.6 mg/dL (8.5-10.1); CREATININE 0.8 mg/dL (0.6-1.3); POTASSIUM 2.9 mmol/L (3.5-5.1)
[2022-08-14 08:00] VITALS: BP 121/73
[2022-08-14] MEDS: BLOOD SUGAR DIAGNOSTIC 1 EACH STRIP IN SCH ×4 (08:22→22:00)
[2022-08-14] MEDS: LACTULOSE 10 G/15 ML UDC (PYXIS) PO SCH ×2 (09:18→16:55)
[2022-08-14] MEDS: METOPROLOL TARTRATE 25 MG TABLET PO SCH ×2 (09:18→16:57)
[2022-08-14] MEDS: PANTOPRAZOLE 40 MG/PACK PACK PO SCH (09:18)
[2022-08-14] MEDS: GLUCERNA SHAKE 237 ML CAN PO SCH ×3 (09:23→17:52)
[2022-08-14] MEDS: CLOTRIMAZOLE 1% 15 GM TUBE TP SCH ×2 (09:23→17:52)
[2022-08-14] MEDS: THERAHONEY GEL 1.5 OZ TUBE TP SCH (09:24)
[2022-08-14] MEDS ORDERED: POTASSIUM CHLORIDE 20 MEQ TAB.PRT.SR PO ONE (10:00)
[2022-08-14] MEDS: DIGOXIN 0.25 MG TABLET PO SCH (12:08)
[2022-08-14 16:00] VITALS: BP 137/83
--- NOTE | 2022-08-14 19:29 | NUR ---
MS RN CLOSING NOTE PT IN BED; AWAKE, A/O X 2-3. STABLE ON ROOM AIR. BREATHING EQUAL AND UNLABORED. IN NO APPARENT DISTRESS. NO S/S OF PAIN OR DISCOMFORT NOTED AT THIS TIME. WITH MIDLINE AT RIGHT UPPER ARM; PATENT, INTACT AND SALINE LOCKED. WITH FLEXISEAL IN PLACE; DRAINING WELL. PATIENT WILL HAVE SERIAL DEBRIDEMENT OF SACRUM AND BILATERAL BUTTOCKS ON AUG 16, CONSENT SECURED. FALL AND SAFETY PRECAUTIONS MAINTAINED: CALL LIGHT AND TABLE WITHIN REACH, SIDE RAILS UP X 3, BED ALARM ON, BED IN LOWEST LOCKED POSITION. ENDORSED TO NIGHT NURSE.
--- NOTE | 2022-08-14 19:45 | NUR ---
MS RN OPENING NOTES: RECEIVED PATIENT SLEEP IN BED, AROUSABLE TO VERBAL STIMULI, BED IN LOW POSITION, CALL LIGHTS WITHIN REACH, NO COMPLAIN OF PAIN AND DISCOMFOR T AT THIS TIME, ON ROOM AIR SATURATING WELL, PATIENT IS A/OX3 ABLE TO MAKE NEEDS KNOWN, ON FLEXISEAL, KEPT CLEAN AND DRY ALL NEEDS MET WILL CONTINUE TO MONITOR.
[2022-08-14 20:00] VITALS: BP 107/56
--- NOTE | 2022-08-14 22:26 | NUR ---
RN NOTES: BLOOD SUGAR-108 NO INSULIN GIVEN PER SLIDING SCALE.
--- NOTE | 2022-08-15 06:12 | NUR ---
MS RN CLOSING NOTES: PATIENT SLEEP IN BED COMFORTABLY, BED IN LOW POSITION CALL LIGHTS WITHIN REACH, NO COMPLAIN OF PAIN AND DISCOMFORT AT THIS TIME, ON ROOM AIR SATURATING WELL, PATIENT IS A/OX3 ABLE TO MAKE NEEDS KNOWN,ON FLEXISEAL AT 150CC OUTPUT, URINE X 3, ON ROOM AIR SATURATING WELL, PATIENT KEPT CLEAN AND DRY ALL NEEDS MET, ENDORSE TO INCOMING SHIFT.
--- NOTE | 2022-08-15 06:25 | NUR ---
RN NOTES: BLOOD SUGAR-133/ 2 UNITS INSULIN GIVEN PER SLIDING SCALE.
[2022-08-15] MEDS ORDERED: SILVER NITRATE APPLICATOR 1 EA BOX TP SCH (06:30)
[2022-08-15] MEDS ORDERED: LIDOCAINE 1%-EPI 1:100,000 50 ML VIAL IJ ONE (06:30)
[2022-08-15] MEDS: INSULIN REGULAR, HUMAN 100 UNIT/ML 3 ML VIAL SQ PRN ×2 (06:53→12:24)
[2022-08-15] MEDS: BLOOD SUGAR DIAGNOSTIC 1 EACH STRIP IN SCH ×4 (06:54→22:00)
[2022-08-15 07:36] LABS: BASOPHILS % (AUTO) 0.4 % (0.0-2.0); EOSINOPHILS % (AUTO) 1.5 % (0.0-6.0); HEMATOCRIT 24 % (39-51); HEMOGLOBIN 7.9 g/dL (13.5-17.5); LYMPHOCYTES # (AUTO) 0.4 K/uL (0.8-4.8); LYMPHOCYTES % (AUTO) 5.4 % (20.0-44.0); MEAN CORPUSCULAR HGB CONC 33 g/dl (31.0-36.0); MEAN CORPUSCULAR VOLUME 88 fL (80-96); MONOCYTES # (AUTO) 0.3 K/uL (0.1-1.30); MONOCYTES % (AUTO) 4.1 % (2.0-12.0); NEUTROPHILS # (AUTO) 6.1 K/uL (1.8-8.9); NEUTROPHILS % (AUTO) 88.6 % (43.0-81.0); PLATELET COUNT (AUTO) 344 K/uL (150-450); RED BLOOD CELL COUNT(AUTO) 2.73 MIL/uL (4.5-6.0); WHITE BLOOD COUNT (AUTO) 6.9 K/uL (4.3-11.0)
[2022-08-15 07:52] LABS: CALCIUM, SERUM 7.6 mg/dL (8.5-10.1); CREATININE 0.7 mg/dL (0.6-1.3); POTASSIUM 2.9 mmol/L (3.5-5.1)
--- NOTE | 2022-08-15 07:52 | NUR ---
MS RN OPENING NOTE RECEIVED PATIENT IN BED; AWAKE, ALERT AND ORIENTED X 2-3. ON ROOM AIR; TOLERATING WELL. BREATHING EVEN AND NONLABORED. NOT IN ANY FORM OR RESPIRATORY DISTRESS. NO S/S OF PAIN OR DISCOMFORT NOTED AT THIS TIME. WITH MIDLINE AT RIGHT UPPER ARM; PATENT, INTACT AND SALINE LOCKED. WITH FLEXISEAL IN PLACE; DRAINING WELL. FALL AND SAFETY PRECAUTIONS IMPLEMENTED: CALL LIGHT AND TABLE WITHIN REACH, SIDE RAILS UP X 3, BED ALARM ON, BED IN LOWEST LOCKED POSITION. WILL CONTINUE PLAN OF CARE.
[2022-08-15 08:00] VITALS: BP 106/55
[2022-08-15] MEDS: GLUCERNA SHAKE 237 ML CAN PO SCH ×3 (08:44→17:35)
[2022-08-15] MEDS: LACTULOSE 10 G/15 ML UDC (PYXIS) PO SCH ×2 (08:44→16:19)
[2022-08-15] MEDS: PANTOPRAZOLE 40 MG/PACK PACK PO SCH (08:45)
[2022-08-15] MEDS: METOPROLOL TARTRATE 25 MG TABLET PO SCH ×2 (08:48→17:34)
[2022-08-15] MEDS: CLOTRIMAZOLE 1% 15 GM TUBE TP SCH ×2 (09:48→17:22)
[2022-08-15] MEDS: THERAHONEY GEL 1.5 OZ TUBE TP SCH (09:54)
[2022-08-15] MEDS ORDERED: POTASSIUM CHLORIDE 20 MEQ TAB.PRT.SR PO SCH (10:00)
[2022-08-15] MEDS: DIGOXIN 0.25 MG TABLET PO SCH (12:19)
[2022-08-15 16:00] VITALS: BP 105/50
--- NOTE | 2022-08-15 18:06 | NUR ---
MS RN CLOSING NOTES: PATIENT AWAKE IN BED COMFORTABLY, BED IN LOW POSITION CALL LIGHTS WITHIN REACH, NO COMPLAIN OF PAIN AND DISCOMFORT AT THIS TIME, ON ROOM AIR SATURATING WELL, PATIENT IS A/OX3 ABLE TO MAKE NEEDS KNOWN,ON FLEXISEAL, URINE X 2, ON ROOM AIR SATURATING WELL, PATIENT KEPT CLEAN AND DRY ALL NEEDS MET, DUE MEDS GIVEN. WOUND DRESSING RENDERED ENDORSE TO INCOMING SHIFT.
[2022-08-15 20:00] VITALS: BP 103/65
--- NOTE | 2022-08-15 20:20 | NUR ---
MS RN OPENING NOTES: RECEIVED PATIENT AWAKE IN BED, BED IN LOW POSITION CALL LIGHTS WITHIN REACH, NO COMPLAIN OF PAIN AND DISCOMFORT AT THIS TIME, ON ROOM AIR SATURATING WELL, PATIENT IS A/OX3 NO CONFUSION WAS OBSERVED, ON FLEXISEAL, , BAGS CHANGED, PATIENT KEPT CLEAN AND DRY ALL NEEDS MET WILL CONTINUE TO MONITOR-
--- NOTE | 2022-08-15 22:41 | NUR ---
RN NOTES; BLOOD SUGAR-118/ NO INSULIN GIVEN PER SLIDING SCALE
--- NOTE | 2022-08-16 06:24 | NUR ---
RN NOTES: BLOOD SUGAR-108/ NO INSULIN GIVEN SLIDING SCALE.
--- NOTE | 2022-08-16 06:25 | NUR ---
MS RN CLOSING NOTES: PATIENT SLEEP IN BED COMFORTABLY, AROUSABLE TO VERBAL STIMULI, BED IN LOW POSITION CALL LIGHTS WITHIN REACH, NO COMPLAIN OF PAIN AND DISCOMFORT AT THIS TIME ON ROOM AIR SATURATING WELL, PATIENT ON FLEXISEAL WITH 50CC BOWEL MOVEMENT OUTPUT, SACRAL DRESSING CHANGE, PATIENT KEPT CLEAN AND DRY ALL NEEDS MET ENDORSE TO INCOMING SHIFT.
[2022-08-16] MEDS: BLOOD SUGAR DIAGNOSTIC 1 EACH STRIP IN SCH ×4 (06:38→22:50)
[2022-08-16 06:52] LABS: BASOPHILS % (AUTO) 0.4 % (0.0-2.0); EOSINOPHILS % (AUTO) 1.7 % (0.0-6.0); HEMATOCRIT 24 % (39-51); HEMOGLOBIN 7.7 g/dL (13.5-17.5); LYMPHOCYTES # (AUTO) 0.3 K/uL (0.8-4.8); LYMPHOCYTES % (AUTO) 5.3 % (20.0-44.0); MEAN CORPUSCULAR HGB CONC 32 g/dl (31.0-36.0); MEAN CORPUSCULAR VOLUME 86 fL (80-96); MONOCYTES # (AUTO) 0.3 K/uL (0.1-1.30); MONOCYTES % (AUTO) 5.4 % (2.0-12.0); NEUTROPHILS # (AUTO) 4.5 K/uL (1.8-8.9); NEUTROPHILS % (AUTO) 87.2 % (43.0-81.0); PLATELET COUNT (AUTO) 336 K/uL (150-450); RED BLOOD CELL COUNT(AUTO) 2.81 MIL/uL (4.5-6.0); WHITE BLOOD COUNT (AUTO) 5.2 K/uL (4.3-11.0)
--- NOTE | 2022-08-16 07:00 | NUR ---
MS RN OPENING NOTES PATIENT LAYING IN BED, ALERT AND RESPONSIVE TO VERBAL STIMULI. RIGHT UPPER ARM MIDLINE SALINE LOCK CLEAN, INTACT, AND FLUSHING WELL. BED IN LOWEST LOCKED POSITION, SIDE RAILS UP X 2, CALL LIGHT WITHIN REACH. FLEXISEAL IN PLACE DRAINING LIQUID STOOL TO GRAVITY. SAFETY MEASURES IN PLACE: BED IN LOWEST LOCKED POSITION, SIDE RAILS UP X 2, CALL LIGHT WITHIN REACH. WILL CONTINUE TO MONITOR.
[2022-08-16 08:00] VITALS: BP 125/65
[2022-08-16] MEDS: GLUCERNA SHAKE 237 ML CAN PO SCH ×3 (08:18→17:11)
[2022-08-16] MEDS: LACTULOSE 10 G/15 ML UDC (PYXIS) PO SCH ×2 (08:45→17:10)
[2022-08-16] MEDS: PANTOPRAZOLE 40 MG/PACK PACK PO SCH (08:45)
[2022-08-16] MEDS: METOPROLOL TARTRATE 25 MG TABLET PO SCH ×2 (08:45→17:11)
[2022-08-16] MEDS: THERAHONEY GEL 1.5 OZ TUBE TP SCH (08:46)
[2022-08-16] MEDS: CLOTRIMAZOLE 1% 15 GM TUBE TP SCH ×2 (08:46→17:11)
[2022-08-16 09:08] LABS: CREATININE 0.9 mg/dL (0.6-1.3); POTASSIUM 2.9 mmol/L (3.5-5.1)
[2022-08-16] MEDS ORDERED: POTASSIUM CHLORIDE 20 MEQ TAB.PRT.SR PO ONE (11:00)
[2022-08-16] MEDS: DIGOXIN 0.25 MG TABLET PO SCH (12:03)
[2022-08-16 17:11] VITALS: BP 126/60
--- NOTE | 2022-08-16 18:43 | NUR ---
MS DONNELLY CLOSING NOTES PATIENT LAYING IN BED, A/O X 3, ABLE TO MAKE NEEDS KNOWN. RIGHT UPPER ARM MIDLINE SALINE LOCK CLEAN, INTACT, AND FLUSHING WELL. SAFETY MEASURES IN PLACE: BED IN LOWEST LOCKED POSITION, SIDE RAILS UP X 2, CALL LIGHT WITHIN REACH. ALL NEED MET. TURNED Q2H. WILL ENDORSE TO TIMBER HARVESTER OPERATOR FOR DASIA. Addendum: 08/16/22 at 1850 by KATHLEEN JONES RN REPORT GIVEN TO ANDRZEJ WU AT RECEIVING FACILITY [facility].
[2022-08-16] MEDS: INSULIN REGULAR, HUMAN 100 UNIT/ML 3 ML VIAL SQ PRN (22:51)
== END 2022-08-16 23:05 | DRG 981 ==
LOC: ER 23:54 → TELE 07-31 04:13 → MED 08-01 10:14
PROVIDERS: ADMIT Internal Medicine; ATTEND Internal Medicine
PROC: 30233N1 Transfusion of Nonautologous Red Blood Cells into Peripheral Vein, Percutaneous Approach (ICD-10-PCS; 2022-08-01)
PROC: 0DB68ZX Excision of Stomach, Via Natural or Artificial Opening Endoscopic, Diagnostic (ICD-10-PCS; principal; 2022-08-05)
PROC: 05HD33Z Insertion of Infusion Device into Right Cephalic Vein, Percutaneous Approach (ICD-10-PCS; 2022-08-06)
PROC: 0KBN0ZZ Excision of Right Hip Muscle, Open Approach (ICD-10-PCS; 2022-08-16)
PROC: 0KBP0ZZ Excision of Left Hip Muscle, Open Approach (ICD-10-PCS; 2022-08-16)
DX: K76.82 Hepatic encephalopathy (principal); G93.41 Metabolic encephalopathy; K26.4 Chronic or unspecified duodenal ulcer with hemorrhage; L89.154 Pressure ulcer of sacral region, stage 4; L89.324 Pressure ulcer of left buttock, stage 4; L89.314 Pressure ulcer of right buttock, stage 4; N17.0 Acute kidney failure with tubular necrosis; K29.71 Gastritis, unspecified, with bleeding; E87.0 Hyperosmolality and hypernatremia; E44.0 Moderate protein-calorie malnutrition; E87.20 Acidosis, unspecified; Z68.42 Body mass index [BMI] 45.0-49.9, adult; D62 Acute posthemorrhagic anemia; E72.20 Disorder of urea cycle metabolism, unspecified; Z20.822 Contact with and (suspected) exposure to COVID-19; I48.91 Unspecified atrial fibrillation; I50.9 Heart failure, unspecified; E87.6 Hypokalemia; E88.09 Other disorders of plasma-protein metabolism, not elsewhere classified; E66.01 Morbid (severe) obesity due to excess calories; D50.9 Iron deficiency anemia, unspecified; D63.8 Anemia in other chronic diseases classified elsewhere; E11.9 Type 2 diabetes mellitus without complications; I11.0 Hypertensive heart disease with heart failure; Z79.84 Long term (current) use of oral hypoglycemic drugs; Z79.4 Long term (current) use of insulin; Z79.51 Long term (current) use of inhaled steroids; Z79.899 Other long term (current) drug therapy; Z79.01 Long term (current) use of anticoagulants; I25.2 Old myocardial infarction; E86.0 Dehydration
CPT/HCPCS: 36410; 36415; 70450-TC; 71045-TC; 76770-TC; 80048-TC; 80053-TC; 80061-TC; 80076-TC; 81001; 82140-TC; 82728-TC; 82962-TC; 83540-TC; 83605-TC; 83735-TC; 84100-TC; 84132-TC; 84439-TC; 84443-TC; 84484-TC; 85025-TC; 85730-TC; 86850-TC; 86900-TC; 87040-TC; 87081-TC; 87086-TC; 92526; 92611-TC; 93307-TC; 97110-TC; 97530-TC; A6253; A6403; C9113; C9803; G0378; G0480; J1160; J1815; J2405; J2704; J3480; J3490; J7030; J7042; J7050; J7060; J7070; P9016